=== PATIENT | male | born 1955 | race Caucasian/White ===

== ENCOUNTER 2021-05-23 09:32 | Outpatient (REF) | payer MEDICAID, SELFPAY ==
[2021-05-23 10:47] LABS: MANUAL DIFF FLAG NO
[2021-05-23 10:51] LABS: Basophils Percent Auto 0.6 % (0-2); Eosinophils Absolute Auto 0.1 X10*3/uL (0.0-0.4); Eosinophils Percent Auto 1.4 % (0-4); Hematocrit 43.8 % (42-52); Hemoglobin 14.4 g/dl (14.0-18.0); Imm Gran Abs Auto 0.17 X10*3/uL (0.00-0.03); Imm Gran Pct Auto 2.7 % (0.0-0.4); Lymphocytes Absolute Auto 1.8 X10*3/uL (1.2-4.9); Lymphocytes Percent Auto 28.5 % (20-40); Mean Corpuscular HGB Conc 32.9 g/dl (31.0-36.0); Mean Corpuscular Hemoglobin 28.5 pg (27.0-33.0); Mean Corpuscular Volume 86.7 fL (80-98); Mean Platelet Volume 8.4 fL (9.4-12.4); Monocytes Absolute Auto 0.5 X10*3/uL (0.1-1.2); Monocytes Percent Auto 7.3 % (2-11); Neutrophils Absolute Auto 3.7 X10*3/uL (2.0-8.3); Neutrophils Percent Auto 59.5 % (45-73); Platelet Count 244 X10*3/uL (160-400); Red Blood Count 5.05 X10*6/uL (4.60-5.80); Red Cell Distribution Width 12.9 % (11.0-16.0); White Blood Count 6.3 X10*3/uL (4.8-10.8)
[2021-05-23 11:20] LABS: Alanine Aminotransferase 20 U/L (0-40); Albumin Level 4.7 g/dL (3.5-5.0); Alkaline Phosphatase 92 U/L (39-117); Anion Gap 16 (12-20); Aspartate Amino Transferase 15 U/L (5-37); Bilirubin Total 0.8 mg/dL (0.0-1.0); Blood Urea Nitrogen 18 mg/dL (9-16); Calcium 9.6 mg/dL (8.4-10.2); Carbon Dioxide 25 mmol/L (22-29); Chloride 104 mmol/L (96-108); Estimated Glomerular Filt Rate 56; Glucose Random 93 mg/dL (60-115); Potassium 4.2 mmol/L (3.3-5.1); Sodium 141 mmol/L (135-145); Total Protein 7.4 g/dL (6.5-8.0)
== END 2021-05-23 09:33 | disposition home or self-care (01) ==
LOC: HO.LAB 09:32
PROVIDERS: PCP Internal Medicine; Visit Provider Internal Medicine
DX: D50.8 Other iron deficiency anemias (principal); E78.2 Mixed hyperlipidemia; I12.9 Hypertensive chronic kidney disease with stage 1 through stage 4 chronic kidney disease, or unspecified chronic kidney disease; N18.31 Chronic kidney disease, stage 3a
CPT/HCPCS: 36415; 80053; 85025

== ENCOUNTER 2021-08-03 09:03 | Outpatient (REF) | payer MEDICAID, SELFPAY ==
--- NOTE | 2021-08-03 09:07 | EMG_ITS ---
This is a 66-year-old man who has had right hand pain on lifting more than 1 pound since 1999. He wears a brace. There is no atrophy or fasciculation. No weakness. PHYSICAL EXAMINATION: He has no Tinel's or Phalen sign. IMPRESSION: Rule out carpal tunnel syndrome. Nerve conduction EMG study: Normal electrodiagnostic study of the right upper extremity with no evidence of carpal tunnel syndrome or nerve entrapment. Normal EMG of the right C5-T1 innervated muscles. MD GEMA Lee/SONY / [id number]
== END 2021-08-03 09:04 | disposition home or self-care (01) ==
LOC: HO.NEURO 09:03
PROVIDERS: PCP Internal Medicine; Visit Provider Internal Medicine
DX: M79.642 Pain in left hand (principal); M79.641 Pain in right hand
CPT/HCPCS: 95885; 95910

== ENCOUNTER 2021-09-05 12:47 | Outpatient (REF) | payer MEDICAID, SELFPAY ==
[2021-09-05 13:01] LABS: MANUAL DIFF FLAG NO
[2021-09-05 13:29] LABS: Basophils Percent Auto 0.4 % (0-2); Eosinophils Absolute Auto 0.3 X10*3/uL (0.0-0.4); Eosinophils Percent Auto 3.6 % (0-4); Hematocrit 26.9 % (42.0-52.0); Hemoglobin 8.4 g/dl (14.0-18.0); Imm Gran Abs Auto 0.18 X10*3/uL (0.00-0.03); Imm Gran Pct Auto 2.3 % (0.0-0.4); Lymphocytes Absolute Auto 1.8 X10*3/uL (1.2-4.9); Lymphocytes Percent Auto 22.4 % (20-40); Mean Corpuscular HGB Conc 31.2 g/dl (31.0-36.0); Mean Corpuscular Hemoglobin 27.4 pg (27.0-33.0); Mean Corpuscular Volume 87.6 fL (80.0-98.0); Mean Platelet Volume 8.5 fL (9.4-12.4); Monocytes Absolute Auto 0.6 X10*3/uL (0.1-1.2); Neutrophils Percent Auto 64.3 % (45-73); Platelet Count 317 X10*3/uL (160-400); Red Blood Count 3.07 X10*6/uL (4.60-5.80); White Blood Count 7.8 X10*3/uL (4.8-10.8)
[2021-09-05 13:55] LABS: Alanine Aminotransferase 13 U/L (0-40); Albumin Level 4.1 g/dL (3.5-5.0); Alkaline Phosphatase 86 U/L (39-117); Anion Gap 12 (12-20); Aspartate Amino Transferase 16 U/L (5-37); Bilirubin Total 0.5 mg/dL (0.0-1.0); Blood Urea Nitrogen 17 mg/dL (9-16); Carbon Dioxide 25 mmol/L (22-29); Estimated Glomerular Filt Rate > 60; Glucose Random 91 mg/dL (60-115); Potassium 4.2 mmol/L (3.3-5.1); Total Protein 6.6 g/dL (6.5-8.0)
[2021-09-05 14:03] LABS: Chloride 108 mmol/L (96-108); Sodium 141 mmol/L (135-145)
== END 2021-09-05 12:48 | disposition home or self-care (01) ==
LOC: HO.LAB 12:47
PROVIDERS: PCP Internal Medicine; Visit Provider Internal Medicine
DX: D50.8 Other iron deficiency anemias (principal); E78.2 Mixed hyperlipidemia; I12.9 Hypertensive chronic kidney disease with stage 1 through stage 4 chronic kidney disease, or unspecified chronic kidney disease; N18.9 Chronic kidney disease, unspecified; D63.1 Anemia in chronic kidney disease; R53.1 Weakness
CPT/HCPCS: 36415; 80053; 85025

== ENCOUNTER 2021-11-15 11:37 | Outpatient (REF) | payer MEDICAID, SELFPAY ==
[2021-11-15 14:45] LABS: Ferritin 2 ng/mL (20-250)
[2021-11-15 15:19] LABS: Vitamin B12 278 pg/mL (200-900)
[2021-11-17 13:11] LABS: Prot Elec - Albumin 3.7 g/dL (3.8-4.8); Prot Elec - Alpha1 0.5 g/dL (0.2-0.3); Prot Elec - Alpha2 0.9 g/dL (0.5-0.9); Prot Elec - Beta 1 0.6 g/dL (0.4-0.6); Prot Elec - Beta 2 0.3 g/dL (0.2-0.5); Prot Elec - Gamma 0.7 g/dL (0.8-1.7); Prot Elec - Total Protein 6.7 g/dL (6.1-8.1)
== END 2021-11-15 11:38 | disposition home or self-care (01) ==
LOC: HO.10HDL 11:37
PROVIDERS: Visit Provider Internal Medicine
DX: D64.9 Anemia, unspecified (principal); R06.02 Shortness of breath; R53.83 Other fatigue
CPT/HCPCS: 36415; 82607; 82728; 84165

== ENCOUNTER 2022-01-24 10:23 | Outpatient (REF) | payer MEDICAID, SELFPAY ==
[2022-01-24 10:38] LABS: MANUAL DIFF FLAG NO
[2022-01-24 12:03] LABS: Basophils Absolute Auto 0.1 X10*3/uL (0.0-0.2); Basophils Percent Auto 0.7 % (0-2); Eosinophils Absolute Auto 0.2 X10*3/uL (0.0-0.4); Eosinophils Percent Auto 2.1 % (0-4); Hematocrit 38.1 % (42.0-52.0); Hemoglobin 11.1 g/dl (14.0-18.0); Imm Gran Abs Auto 0.07 X10*3/uL (0.00-0.03); Lymphocytes Absolute Auto 1.3 X10*3/uL (1.2-4.9); Lymphocytes Percent Auto 18.4 % (20-40); Mean Corpuscular HGB Conc 29.1 g/dl (31.0-36.0); Mean Corpuscular Hemoglobin 23.8 pg (27.0-33.0); Mean Corpuscular Volume 81.6 fL (80.0-98.0); Mean Platelet Volume 8.6 fL (9.4-12.4); Monocytes Absolute Auto 0.6 X10*3/uL (0.1-1.2); Monocytes Percent Auto 8.4 % (2-11); Neutrophils Absolute Auto 4.9 x10*3/uL (2.0-8.3); Neutrophils Percent Auto 69.4 % (45-73); Platelet Count 339 X10*3/uL (160-400); Red Blood Count 4.67 X10*6/uL (4.60-5.80); Red Cell Distribution Width 16.9 % (11.0-16.0)
[2022-01-24 12:41] LABS: Alanine Aminotransferase 16 U/L (0-40); Albumin Level 4.3 g/dL (3.5-5.0); Alkaline Phosphatase 98 U/L (39-117); Anion Gap 13 (12-20); Aspartate Amino Transferase 17 U/L (5-37); Bilirubin Total 0.3 mg/dL (0.0-1.0); Blood Urea Nitrogen 21 mg/dL (9-16); Calcium 9.7 mg/dL (8.4-10.2); Carbon Dioxide 27 mmol/L (22-29); Chloride 105 mmol/L (96-108); Cholesterol 156 mg/dL; Estimated Glomerular Filt Rate > 60; Glucose Random 89 mg/dL (60-115); HDL Cholesterol 50 mg/dL; LDL Cholesterol Calculated 89 mg/dl; Potassium 4.7 mmol/L (3.3-5.1); Sodium 140 mmol/L (135-145); Triglycerides 88 mg/dL
[2022-01-24 12:51] LABS: Thyroid Stimulating Hormone 2.61 uIU/mL (0.32-4.0)
== END 2022-01-24 10:24 | disposition home or self-care (01) ==
LOC: HO.LAB 10:23
PROVIDERS: PCP Internal Medicine; Visit Provider Internal Medicine
DX: E78.2 Mixed hyperlipidemia (principal); I10 Essential (primary) hypertension
CPT/HCPCS: 36415; 80053; 80061; 84443; 85025

== ENCOUNTER 2022-02-09 09:41 | Outpatient (REF) | payer MEDICAID, SELFPAY ==
--- NOTE | ~2022-02-09 | XR_ITS ---
EXAMINATION: 1. RADIOGRAPHS RIGHT SHOULDER 2. RADIOGRAPHS RIGHT ELBOW CLINICAL INFORMATION: Chronic pain COMPARISON: None TECHNIQUE: 4 views of the right shoulder and 3 views of the right elbow were obtained. FINDINGS: Right shoulder: Visualized portion of the proximal right femur demonstrate no fracture. Right femoral head demonstrates good articulation with the glenoid fossa. There are mild to moderate hypertrophic changes of the right acromioclavicular joint. Visualized right-sided ribs and lung parenchyma are unremarkable. Degenerative changes of the visualized thoracic spine. Right elbow: No fracture or dislocation. No joint effusion. Small enthesophytes off the olecranon process and medial and lateral humeral epicondyles. No focal soft tissue swelling of the right elbow. XR/XR elbow RT 2V IMPRESSION: -Mild degenerative changes of the right shoulder without fracture or dislocation. -Mild degenerative changes of the right elbow without fracture or dislocation.
--- NOTE | ~2022-02-09 | XR_ITS ---
EXAMINATION: 1. RADIOGRAPHS RIGHT SHOULDER 2. RADIOGRAPHS RIGHT ELBOW CLINICAL INFORMATION: Chronic pain COMPARISON: None TECHNIQUE: 4 views of the right shoulder and 3 views of the right elbow were obtained. FINDINGS: Right shoulder: Visualized portion of the proximal right femur demonstrate no fracture. Right femoral head demonstrates good articulation with the glenoid fossa. There are mild to moderate hypertrophic changes of the right acromioclavicular joint. Visualized right-sided ribs and lung parenchyma are unremarkable. Degenerative changes of the visualized thoracic spine. Right elbow: No fracture or dislocation. No joint effusion. Small enthesophytes off the olecranon process and medial and lateral humeral epicondyles. No focal soft tissue swelling of the right elbow. XR/XR shoulder RT min 2V IMPRESSION: -Mild degenerative changes of the right shoulder without fracture or dislocation. -Mild degenerative changes of the right elbow without fracture or dislocation.
== END 2022-02-09 09:42 | disposition home or self-care (01) ==
LOC: HO.XRAY 09:41
PROVIDERS: PCP Internal Medicine; Visit Provider Internal Medicine
DX: M25.511 Pain in right shoulder (principal); M25.521 Pain in right elbow
CPT/HCPCS: 73030; 73070

== ENCOUNTER 2022-02-22 09:13 | Outpatient (REF) | payer MEDICAID, SELFPAY ==
[2022-02-22 11:26] LABS: Alanine Aminotransferase 19 U/L (0-40); Albumin Level 4.3 g/dL (3.5-5.0); Alkaline Phosphatase 119 U/L (39-117); Anion Gap 13 (12-20); Aspartate Amino Transferase 16 U/L (5-37); Bilirubin Total 0.4 mg/dL (0.0-1.0); Blood Urea Nitrogen 16 mg/dL (9-16); Calcium 9.7 mg/dL (8.4-10.2); Carbon Dioxide 27 mmol/L (22-29); Chloride 103 mmol/L (96-108); Estimated Glomerular Filt Rate 60; Glucose Random 94 mg/dL (60-115); Potassium 4.4 mmol/L (3.3-5.1); Sodium 139 mmol/L (135-145); Total Protein 7.4 g/dL (6.5-8.0)
[2022-02-22 11:34] LABS: Prostate Specific Antigen Scr 1.73 ng/mL (<0.05-4.0)
== END 2022-02-22 09:14 | disposition home or self-care (01) ==
LOC: HO.10HDL 09:13
PROVIDERS: Visit Provider Internal Medicine
DX: Z12.5 Encounter for screening for malignant neoplasm of prostate (principal); D64.9 Anemia, unspecified
CPT/HCPCS: 36415; 80053; 84153

== ENCOUNTER 2022-03-14 10:25 | Day surgery (SDC) | payer MEDICAID, SELFPAY ==
[2022-03-08 10:43] VITALS: BMI 26.9
--- NOTE | 2022-03-13 08:42 | P.CONAN_ITS ---
Documented by User: Nelia Richey NP 03/13/22 08:43 HPI - Anesthesia Eval Consult details Narrative: 66yo M for Upper Endoscopy and Colonoscopy COUNTS INCLUDE 234 BEDS AT THE [facility] Past Medical History Medical History (Updated 03/08/22 @ 10:45 by Marlene Rice RN) COVID-19 vaccine series completed Elevated cholesterol History of COVID-19 HTN (hypertension) Iron deficiency anemia Macular degeneration Renal calculi Renal cyst Surgical History Surgical History (Updated 03/08/22 @ 10:33 by Marlene Rice RN) H/O colonoscopy Hx of right inguinal hernia repair Social History Social History Patient Tobacco Use Status: Former Tobacco user Quit Date: 1994 Tobacco use type: Cigarette Use of substances other than those prescribed or required for medical reasons: No Have you been hit, kicked, punched, or otherwise hurt by someone within the past year? If so, by whom?: No Are you DNR?: No Advance Directives: No Advance Directives Information Provided: Yes (brochure mailed) Advance Directives on File: No Recently lost weight without trying: No Eating poorly because of decreased appetite: No Nutrition Risks: No Nutritional Risk Poor oral hygiene: No Meds Allergies Allergy/AdvReac Type Severity Reaction Status Date / Time No Known Allergies Allergy Verified 03/08/22 10:33 Home Medications Medication Instructions Recorded Confirmed Last Taken Type amlodipine 5 mg tablet 1 tab PO DAILY 03/08/22 03/08/22 Unknown History atorvastatin 10 mg tablet 1 tab PO DAILY 03/08/22 03/08/22 Unknown History ferrous sulfate 325 mg (65 mg 1 tab PO DAILY 03/08/22 03/08/22 Unknown History iron) tablet (FeroSul) vitamin A-vitamin C-vit E-min 1 tab PO DAILY 03/08/22 03/08/22 Unknown History tablet Exam Exam Date and Time: March 13, 2022 0842 Height,Weight and Vital Signs: Height 5 ft 9 in Weight 82.554 kg Pertinent Lab Results Pertinent Lab Results: Laboratory Tests 01/24/22 02/22/22 10:36 09:29 WBC 7.0 Hgb 11.1 L D Hct 38.1 L D Plt Count 339 Sodium 139 Potassium 4.4 Chloride 103 Carbon Dioxide 27 BUN 16 Creatinine 1.22 Assessment and Plan Assessment Anesthesia Assessment: Chart Reviewed Documented by User: Betty Guzman MD 03/14/22 12:17 COUNTS INCLUDE 234 BEDS AT THE [facility] Past Medical History Medical History (Updated 03/08/22 @ 10:45 by Marlene Rice, RN) COVID-19 vaccine series completed Elevated cholesterol History of COVID-19 HTN (hypertension) Iron deficiency anemia Macular degeneration Renal calculi Renal cyst Family History Family history of problems with anesthesia: No Surgical History Surgical History (Updated 03/08/22 @ 10:33 by Marlene Rice RN) H/O colonoscopy Hx of right inguinal hernia repair History of Problems with Anesthesia: No Social History Social History Patient Tobacco Use Status: Former Tobacco user Quit Date: 1994 Tobacco use type: Cigarette Use of substances other than those prescribed or required for medical reasons: No Have you been hit, kicked, punched, or otherwise hurt by someone within the past year? If so, by whom?: No Are you DNR?: No Advance Directives: No Advance Directives Information Provided: Yes (brochure mailed) Advance Directives on File: No Recently lost weight without trying: No Eating poorly because of decreased appetite: No Nutrition Risks: No Nutritional Risk Poor oral hygiene: No Meds Allergies Allergy/AdvReac Type Severity Reaction Status Date / Time No Known Allergies Allergy Verified 03/08/22 10:33 Home Medications Medication Instructions Recorded Confirmed Last Taken Type amlodipine 5 mg tablet 1 tab PO DAILY 03/08/22 03/08/22 Unknown History atorvastatin 10 mg tablet 1 tab PO DAILY 03/08/22 03/08/22 Unknown History ferrous sulfate 325 mg (65 mg 1 tab PO DAILY 03/08/22 03/08/22 Unknown History iron) tablet (FeroSul) vitamin A-vitamin C-vit E-min 1 tab PO DAILY 03/08/22 03/08/22 Unknown History tablet Exam Height,Weight and Vital Signs: Height 5 ft 9 in Weight 82.554 kg Vital Signs Temp Pulse Resp BP Pulse Ox O2 Del Method 03/14/22 11:42 98.8 F 73 16 128/74 95 Room Air Airway Mallampati Class: II TM Dist: >3cm Neck ROM: Full Loose/Missing/Broken Teeth: No Heart: RRR Lungs: Diminished but clear Assessment and Plan Assessment Anesthesia Assessment: Anesthesia Plan Discussed Final Anesthetic Review Family History of Problems with Anesthesia: No History of Problems with Anesthesia: No NPO: Yes ASA Class: II Final Preanesthetic Review: No Changes in Pt Med Stat, Meds/Allgs Chart Reviewed, Consent Obtained/Reviewed and Anes Risks/Benef Reviewed Patient Risk: Low Procedure Risk: Low Assessment/Block/Sedation in SS: Assess/Block/Sedation-SS Anesthetic Plan Anesthetic Plan: MAC: Disposition: Standard PACU
[2022-03-14 11:42] VITALS: BP 128/74; PULSE 73; RESP 16; TEMP 37.1; O2SAT 95
[2022-03-14] MEDS: Lactated Ringers 1,000 ML 100 ML IVCONT (12:16)
--- NOTE | 2022-03-14 12:21 | MHC.SHP ---
Pre-Procedural Eval Section A Date of Service: 03/14/22 The patient is an INPATIENT: No Changes since office visit: No Cold of Flu in the past 2 weeks, No New Medical Problems, No Changes in Medication and No Patient answered all questions The History & Physical has been completed within 30 days and I have reviewed it.: Yes Section B Chief Complaint: anemia Allergies: Allergies Allergy/AdvReac Type Severity Reaction Status Date / Time No Known Allergies Allergy Verified 03/08/22 10:33 Plan I have reviewed the history and physical and performed a pertinent physical examination on my patient. No changes have occurred unless specified.
[2022-03-14 13:28] VITALS: BP 86/50; PULSE 73; RESP 16; TEMP 36.1; O2SAT 96
--- NOTE | 2022-03-14 13:40 | PM.OP ---
Brief Operative Note Date of Service: 03/14/22 Pre-op diagnosis: iron def anemia Post-op diagnosis: same Procedure: egd colon Surgeon: Merlin Chaudhry Anesthesia: MAC Was an Construction And Maintenance Inspector used for this Procedure?: No Estimated blood loss (mL): 5 Pathology: other Condition: stable Disposition: PACU
[2022-03-14 13:43] VITALS: BP 91/50; PULSE 64; RESP 16; O2SAT 98
[2022-03-14 13:58] VITALS: BP 109/67; PULSE 60; RESP 16; TEMP 36.1; O2SAT 99
--- NOTE | 2022-03-14 14:12 | OP_ITS ---
SURGEON: Merlin Chaudhry MD INDICATIONS: Iron deficiency anemia. PREOPERATIVE DIAGNOSIS: POSTOPERATIVE DIAGNOSIS: PROCEDURE PERFORMED: 1. Upper endoscopy with biopsy. 2. Colonoscopy to the terminal ileum with biopsy. ESTIMATED BLOOD LOSS: COMPLICATIONS: ANESTHESIA: ASSISTANTS: SPECIMENS: MEDICATIONS: Monitored anesthesia care. DESCRIPTION OF PROCEDURE: History and physical were performed. The risks and benefits of the procedure were explained to the patient. Informed consent was obtained. The patient was placed in the left lateral decubitus position. The Olympus video gastroscope was introduced into the esophagus, stomach, and duodenum. Examination was performed. The scope was removed. He was repositioned for colonoscopy. A digital rectal exam was performed and was found to be normal. The Olympus pediatric video colonoscope was introduced into the rectum and advanced to the cecum without difficulty. The cecum was identified by transillumination, palpation, and identification of the ileocecal valve. Examination was performed and the scope was removed. He tolerated both procedures well and was returned to recovery area in stable condition. FINDINGS: UPPER ENDOSCOPY: Esophagus: There were changes consistent with Gutierrez esophagus beginning at about 25 cm extending to the EG junction, which was at about 34 to 35 cm. There was a large ulcer involving approximately 50% of the lumen measuring approximately 3 x 4 cm right at the EG junction, just above it with some heaped up margins. Biopsies were obtained from the ulcer, which was not bleeding. No therapy was performed. Biopsies were then obtained in all 4 quadrants above the ulcer extending to the upper limit of the Gutierrez's tissue. Aside from the ulcer, there were no other ulcers or raised lesions. Stomach: The stomach showed no evidence of masses or ulcers. Antral biopsies were obtained to evaluate for H pylori. Duodenum: The bulb and second portion were normal. Biopsies were obtained from the second portion. COLONOSCOPY: The terminal ileum was examined and appeared normal. There was a moderate amount of stool coating the mucosa in the right colon and cecum, limiting the examination for detection of small polyps. There was a small less than 5 mm polyp in the right colon, which was removed with biopsy forceps. The remainder of the colon showed no lesions. There was diverticulosis present to moderate degree in the sigmoid and some scattered diverticula throughout the remainder of the colon. Retroflexed examination was normal. IMPRESSION: 1. Gutierrez esophagus. 2. Hiatal hernia. 3. Esophageal ulcer. 4. Colon polyp. RECOMMENDATION: Follow up the biopsy results and begin proton pump inhibitor. MD ADRIAN Nobles/SONY / [id number]
== END 2022-03-14 15:20 | disposition home or self-care (01) ==
PROVIDERS: PCP Internal Medicine; Visit Provider Internal Medicine Gastroenterology
PROC: (CPT 45380; principal; 2022-03-14 12:40)
DX: D50.9 Iron deficiency anemia, unspecified (principal); D12.2 Benign neoplasm of ascending colon; R53.83 Other fatigue; K29.50 Unspecified chronic gastritis without bleeding; K29.80 Duodenitis without bleeding; B96.81 Helicobacter pylori [H. pylori] as the cause of diseases classified elsewhere; K22.70 Barrett's esophagus without dysplasia; K44.9 Diaphragmatic hernia without obstruction or gangrene; I10 Essential (primary) hypertension; E78.00 Pure hypercholesterolemia, unspecified; Z79.899 Other long term (current) drug therapy; Z86.16 Personal history of COVID-19
CPT/HCPCS: 45380; 43239; 88305; 88342

== ENCOUNTER 2022-05-02 08:22 | Outpatient (REF) | payer MEDICARE, MEDICAID, SELFPAY ==
[2022-05-02 09:28] LABS: Alanine Aminotransferase 12 U/L (0-40); Albumin Level 4.5 g/dL (3.5-5.0); Alkaline Phosphatase 96 U/L (39-117); Anion Gap 15 (12-20); Aspartate Amino Transferase 14 U/L (5-37); Bilirubin Total 0.5 mg/dL (0.0-1.0); Blood Urea Nitrogen 17 mg/dL (9-16); Calcium 9.3 mg/dL (8.4-10.2); Carbon Dioxide 23 mmol/L (22-29); Chloride 107 mmol/L (96-108); Estimated Glomerular Filt Rate 59; Glucose Random 98 mg/dL (60-115); Sodium 141 mmol/L (135-145); Total Protein 7.2 g/dL (6.5-8.0)
== END 2022-05-02 08:23 | disposition home or self-care (01) ==
LOC: HO.LAB 08:22
PROVIDERS: PCP Internal Medicine; Visit Provider Internal Medicine
DX: Z00.00 Encounter for general adult medical examination without abnormal findings (principal); Z12.5 Encounter for screening for malignant neoplasm of prostate; M79.601 Pain in right arm; I10 Essential (primary) hypertension; E78.00 Pure hypercholesterolemia, unspecified; D50.8 Other iron deficiency anemias
CPT/HCPCS: 36415; 80053; 84153

== ENCOUNTER → 2022-06-21 10:22 | Outpatient (BNVA) | payer OTHER, MEDICAID, SELFPAY | PROVIDERS: PCP Internal Medicine; Visit Provider Physician Assistant | DX: M77.11 Lateral epicondylitis, right elbow (principal) | CPT/HCPCS: 20551; 99202; J1100 ==

== ENCOUNTER 2022-07-06 10:00 | Outpatient (RCR) | payer MEDICARE, OTHER, MEDICAID, SELFPAY | END 2022-07-18 08:14 | disposition home or self-care (01) | LOC: HO.PT 10:00 | PROVIDERS: PCP Internal Medicine; Visit Provider Internal Medicine | DX: M25.511 Pain in right shoulder (principal) | CPT/HCPCS: 97035; 97110; 97140; 97162; 97530 ==

== ENCOUNTER 2022-07-14 06:50 | Day surgery (SDC) | payer OTHER, MEDICAID, SELFPAY ==
[2022-07-11 10:26] VITALS: BMI 26.9
--- NOTE | 2022-07-13 10:54 | P.CONAN_ITS ---
Documented by User: Nelia Richey NP 07/13/22 10:57 HPI - Anesthesia Eval Consult details Narrative: 67yo M for Upper Endoscopy s/p EGD and [place] 03/[address] [facility] Active Problems Active Problems: All Active Problems (Updated 06/21/22 @ 11:39 by Sherrie Haas PA-C) Epicondylitis elbow, medial (Acute) Lateral epicondylitis, right elbow (Acute) Past Medical History Medical History COVID-19 vaccine series completed Elevated cholesterol History of COVID-19 HTN (hypertension) Iron deficiency anemia Macular degeneration Renal calculi Renal cyst Family History Family history of problems with anesthesia: No Surgical History Surgical History H/O colonoscopy History of esophagogastroduodenoscopy (EGD) Hx of right inguinal hernia repair History of Problems with Anesthesia: No Social History Social History (Updated 06/21/22 @ 11:06 by Alexandra Roldan Sohan) Patient Tobacco Use Status: Former Tobacco user Quit Date: 1994 Tobacco use type: Cigarette Are you DNR?: No Advance Directives: No Advance Directives Information Provided: Yes Nutrition Risks: No Nutritional Risk Current occupational status: retired Current occupation: rt hand Meds Allergies Allergy/AdvReac Type Severity Reaction Status Date / Time No Known Allergies Allergy Verified 07/14/22 08:15 Home Medications Medication Instructions Recorded Confirmed Last Taken Type amlodipine 5 mg tablet 1 tab PO DAILY 03/08/22 07/14/22 07/13/22 History atorvastatin 10 mg tablet 1 tab PO DAILY 03/08/22 07/14/22 07/13/22 History ferrous sulfate 325 mg (65 mg 1 tab PO DAILY 03/08/22 07/14/22 07/13/22 History iron) tablet (FeroSul) vitamin A-vitamin C-vit E-min 1 tab PO DAILY 03/08/22 07/14/22 07/13/22 History tablet omeprazole 40 mg capsule,delayed 40 mg PO DAILY 06/21/22 07/14/22 07/13/22 History release Exam Exam Date and Time: July 13, 2022 1054 Height,Weight and Vital Signs: Height 5 ft 9 in Weight 82.554 kg Pertinent Lab Results Pertinent Lab Results: Laboratory Tests 01/24/22 05/02/22 10:36 08:39 WBC 7.0 Hgb 11.1 L D Hct 38.1 L D Plt Count 339 Sodium 141 Potassium 4.0 Chloride 107 Carbon Dioxide 23 BUN 17 H Creatinine 1.23 Assessment and Plan Assessment Anesthesia Assessment: Chart Reviewed Final Anesthetic Review Family History of Problems with Anesthesia: No History of Problems with Anesthesia: No Documented by User: Jer Greene MD 07/14/22 15:51 [facility] Past Medical History Medical History COVID-19 vaccine series completed Elevated cholesterol History of COVID-19 HTN (hypertension) Iron deficiency anemia Macular degeneration Renal calculi Renal cyst Functional capacity: independent ambulation Surgical History Surgical History H/O colonoscopy History of esophagogastroduodenoscopy (EGD) Hx of right inguinal hernia repair Social History Social History (Updated 06/21/22 @ 11:06 by Alexandra Roldan Sohan) Patient Tobacco Use Status: Former Tobacco user Quit Date: 1994 Tobacco use type: Cigarette Are you DNR?: No Advance Directives: No Advance Directives Information Provided: Yes Nutrition Risks: No Nutritional Risk Current occupational status: retired Current occupation: rt hand Meds Allergies Allergy/AdvReac Type Severity Reaction Status Date / Time No Known Allergies Allergy Verified 07/14/22 08:15 Home Medications Medication Instructions Recorded Confirmed Last Taken Type amlodipine 5 mg tablet 1 tab PO DAILY 03/08/22 07/14/22 07/13/22 History atorvastatin 10 mg tablet 1 tab PO DAILY 03/08/22 07/14/22 07/13/22 History ferrous sulfate 325 mg (65 mg 1 tab PO DAILY 03/08/22 07/14/22 07/13/22 History iron) tablet (FeroSul) vitamin A-vitamin C-vit E-min 1 tab PO DAILY 03/08/22 07/14/22 07/13/22 History tablet omeprazole 40 mg capsule,delayed 40 mg PO DAILY 06/21/22 07/14/22 07/13/22 History release Exam Airway Mallampati Class: IV TM Dist: >3cm Neck ROM: Full Loose/Missing/Broken Teeth: Yes (Chipped front teeth , fillings , poor dentition) Heart: S1,S2 Lungs: b/l breath sounds Assessment and Plan Assessment Anesthesia Assessment: Anesthesia Plan Discussed Final Anesthetic Review NPO: Yes ASA Class: II Final Preanesthetic Review: Meds/Allgs Chart Reviewed, Consent Obtained/Reviewed and Anes Risks/Benef Reviewed Patient Risk: Intermediate Procedure Risk: Intermediate Anesthetic Plan Anesthetic Plan: MAC: Disposition: Standard PACU
[2022-07-14 07:35] VITALS: BP 138/76; PULSE 66; RESP 18; TEMP 36.6; O2SAT 99
[2022-07-14] MEDS: Lactated Ringers 1,000 ML 100 ML IVCONT (07:37)
--- NOTE | 2022-07-14 07:40 | MHC.SHP ---
Pre-Procedural Eval Section A Date of Service: 07/14/22 Section B Chief Complaint: ulcer esophagus Details of Present Illness: see h&p and addendum, no changes Relevant Family History (Specify if Yes): No Relevant Social History: None Present Medications: see Short Stay Collaborative assessment Medical History: No relevant PMH History of Previous Operations: No relevant previous surgery Allergies: Allergies Allergy/AdvReac Type Severity Reaction Status Date / Time No Known Allergies Allergy Verified 06/21/22 11:04 Review of Systems Sugical H&P ROS: Negative: Constitution, Cardiovascular, Respiratory, Neurological, Psychiatric, Hem-Onc, Allergic/Immunologic, Gastrointestinal, Genitourinary, Musculoskeletal, Integumentary, Endocrine and Eyes/Ears/Nose/Throat Exam Surgical H&P Exam: Normal: HEENT, Normal: Heart, Normal: Lungs, Normal: Extremities, Normal: Abdomen, Normal: Skin and Normal: Neurological Plan Diagnosis/Plan: Unchanged I have reviewed the history and physical and performed a pertinent physical examination on my patient. No changes have occurred unless specified.
--- NOTE | 2022-07-14 09:12 | PM.OP ---
Brief Operative Note Date of Service: 07/14/22 Pre-op diagnosis: barretts with ulcer and h pylori infection Post-op diagnosis: same Procedure: egd Surgeon: Merlin Chaudhry Anesthesia: MAC Was an Junior Web Developer used for this Procedure?: No Estimated blood loss (mL): 2 Pathology: other Condition: stable Disposition: PACU
[2022-07-14 09:19] VITALS: BP 113/66; PULSE 77; RESP 17; TEMP 36.7; O2SAT 97
[2022-07-14 09:34] VITALS: BP 121/70; PULSE 69; RESP 18; O2SAT 94
[2022-07-14 09:49] VITALS: BP 126/73; PULSE 73; RESP 18; O2SAT 96
--- NOTE | 2022-07-15 00:29 | OP_ITS ---
SURGEON: Merlin Chaudhry MD INDICATIONS: Gutierrez esophagus with H pylori infection and large esophageal ulcer. PREOPERATIVE DIAGNOSIS: POSTOPERATIVE DIAGNOSIS: PROCEDURE PERFORMED: Upper endoscopy with biopsy on 07/14/22. ESTIMATED BLOOD LOSS: COMPLICATIONS: ANESTHESIA: Monitored anesthesia care. ASSISTANTS: SPECIMENS: DESCRIPTION OF PROCEDURE: History and physical performed. The risks and benefits of the procedure were explained to the patient. Informed consent was obtained. The patient was placed in the left lateral decubitus position. The Olympus video gastroscope was introduced into the esophagus, stomach, and duodenum. Examination was performed. The scope was removed. He tolerated the procedure well and was taken to the recovery area in stable condition. FINDINGS: Esophagus: The esophagus was tortuous. There was a large area of Gutierrez esophagus, which had been previously identified and biopsied at his last upper endoscopy. The large esophageal ulcer, which had been previously identified at the EG junction was completely healed with no residual ulceration. Biopsies were obtained in the distal esophagus at 34 and 32 cm. There was a small hiatal hernia. Stomach: The stomach showed no evidence of masses, ulcers, or polyps. Antral biopsies were obtained to follow up on his H pylori infection, which had been treated. Duodenum: The bulb and second portion were normal. IMPRESSION: 1. Gutierrez esophagus. 2. Esophageal ulcer, healed. 3. H pylori infection. RECOMMENDATION: Follow up the biopsy results. MD ADRIAN Nobles/SONY / [id number] MTDD
== END 2022-07-14 10:21 | disposition home or self-care (01) ==
PROVIDERS: PCP Internal Medicine; Visit Provider Internal Medicine Gastroenterology
PROC: 0DJ08ZZ Inspection of Upper Intestinal Tract, Via Natural or Artificial Opening Endoscopic (ICD-10-PCS; CPT 43235; principal; 2022-07-14 08:00)
DX: K22.70 Barrett's esophagus without dysplasia (principal); Z87.11 Personal history of peptic ulcer disease; A04.8 Other specified bacterial intestinal infections; K22.89 Other specified disease of esophagus; K44.9 Diaphragmatic hernia without obstruction or gangrene; E78.00 Pure hypercholesterolemia, unspecified; I10 Essential (primary) hypertension; D50.9 Iron deficiency anemia, unspecified; Z79.899 Other long term (current) drug therapy; Z87.891 Personal history of nicotine dependence; Z86.16 Personal history of COVID-19
CPT/HCPCS: 43239; 88305; 88342; J3010

== ENCOUNTER 2022-08-01 13:00 | Outpatient (RCR) | payer OTHER, MEDICAID, SELFPAY ==
--- NOTE | 2022-07-17 14:03 | MHC.OT.EP ---
[address] [phone] Occupational Therapy Plan of Care Date of Evaluation: 07/17/22 Diagnosis: Right lateral epicondylitis Assessment: 67 yo male presents w/ right hand weakness and impaired functional since injury to elbow almost thirty years ago. He reports that he fell down and landed onto right elbow and was never seen by MD or therapist at that time. He has recently been seen at [facility] and received cortisone injection to right elbow and appears to have good results. Now referred to therapy w/ c/o occasional numbness in dorsal hand and low ep specialist strength for everyday activities. MRI of shoulder and elbow normal and EMG (-) for nerve involvement. On assessment, he does have decreased elbow range w/ 30-145 degrees, but still within functional range and reports he has been able to bowl and play darts. He reports difficulty grasping pen/pencil, but digit range is WFL and coordination assessment normal. He offers no specific c/o pain today and sensory assessment shows normal limits in both hands and no indication of muscle atrophy in any distribution or musculature. Gross grasp initially 1lb, but increases to 20lb w/ rapid alternating movement assessment. He is able to grasp blue foam and beige putty w/ ease when given home program. We will continue OT for hand strengthening w/ goal of increased gross grasp and pinch for improved daily activities. 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 Thank you once again for your referral.
--- NOTE | 2022-08-02 13:21 | MHC.OT.DC ---
[address] [phone] F: [phone] Occupational Therapy Discharge Note Provider: Sherrie Haas Diagnosis: Right lateral epicondylitis Date of Evaluation: 07/17/22 Date of Discharge: 08/01/22 Treatments to Date: 5 Discharge Status: Achieved Goals Improved Function Independent with HEP Discharge Summary: Fl[place] was referred to OT for right arm pain and weakness related to injury over 30 years ago. 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 QuickDASH has improved to 14 pts, indicating mild functional deficits. He has been able to participate in all strengthening tasks in OT sessions with no increase in pain and has good understanding of home exercise program. He cont's to report right shoulder discomfort at times, mostly related to heavy work, but he has done well and I anticipate he will cont with home program and encouragement to increase day to day activities. Electronically Signed By: Sarah Ravi OTR/L CHT Reviewed/agree with student documentation: N/A Therapist: Please Sign and return to therapist, thank you for your referral.
== END 2022-08-02 13:21 | disposition home or self-care (01) ==
LOC: HO.OT 13:00
PROVIDERS: Visit Provider Physician Assistant
DX: M77.11 Lateral epicondylitis, right elbow (principal)
CPT/HCPCS: 97110; 97165

== ENCOUNTER 2022-09-14 13:21 | Outpatient (REF) | payer OTHER, MEDICAID, SELFPAY ==
[2022-09-14 13:34] LABS: MANUAL DIFF FLAG NO
[2022-09-14 13:57] LABS: Basophils Absolute Auto 0.1 X10*3/uL (0.0-0.2); Basophils Percent Auto 0.8 % (0-2); Eosinophils Absolute Auto 0.1 X10*3/uL (0.0-0.4); Eosinophils Percent Auto 1.3 % (0-4); Hematocrit 44.7 % (42.0-52.0); Hemoglobin 14.2 g/dl (14.0-18.0); Imm Gran Abs Auto 0.19 X10*3/uL (0.00-0.03); Lymphocytes Absolute Auto 1.7 X10*3/uL (1.2-4.9); Mean Corpuscular HGB Conc 31.8 g/dl (31.0-36.0); Mean Corpuscular Hemoglobin 27.5 pg (27.0-33.0); Mean Corpuscular Volume 86.5 fL (80.0-98.0); Mean Platelet Volume 8.4 fL (9.4-12.4); Monocytes Absolute Auto 0.6 X10*3/uL (0.1-1.2); Monocytes Percent Auto 8.6 % (2-11); Neutrophils Absolute Auto 3.8 x10*3/uL (2.0-8.3); Neutrophils Percent Auto 59.3 % (45-73); Platelet Count 276 X10*3/uL (160-400); Red Blood Count 5.17 X10*6/uL (4.60-5.80); Red Cell Distribution Width 12.9 % (11.0-16.0); White Blood Count 6.4 X10*3/uL (4.8-10.8)
[2022-09-14 14:59] LABS: Alanine Aminotransferase 29 U/L (0-40); Albumin Level 4.7 g/dL (3.5-5.0); Alkaline Phosphatase 116 U/L (39-117); Anion Gap 15 (12-20); Aspartate Amino Transferase 20 U/L (5-37); Bilirubin Total 0.4 mg/dL (0.0-1.0); Blood Urea Nitrogen 15 mg/dL (9-16); Carbon Dioxide 27 mmol/L (22-29); Chloride 103 mmol/L (96-108); Estimated Glomerular Filt Rate > 60; Glucose Random 80 mg/dL (60-115); Potassium 4.5 mmol/L (3.3-5.1); Sodium 140 mmol/L (135-145); Total Protein 7.4 g/dL (6.5-8.0)
== END 2022-09-14 13:22 | disposition home or self-care (01) ==
LOC: HO.LAB 13:21
PROVIDERS: PCP Internal Medicine; Visit Provider Internal Medicine
DX: D50.8 Other iron deficiency anemias (principal); E78.00 Pure hypercholesterolemia, unspecified; I10 Essential (primary) hypertension
CPT/HCPCS: 36415; 80053; 85025

== ENCOUNTER 2023-02-05 08:52 | Outpatient (REF) | payer OTHER, MEDICAID, SELFPAY ==
[2023-02-05 10:33] LABS: MANUAL DIFF FLAG NO
[2023-02-05 10:37] LABS: Basophils Percent Auto 0.7 % (0-2); Eosinophils Absolute Auto 0.1 X10*3/uL (0.0-0.4); Eosinophils Percent Auto 0.9 % (0-4); Hematocrit 43.4 % (42.0-52.0); Imm Gran Abs Auto 0.14 X10*3/uL (0.00-0.03); Imm Gran Pct Auto 2.4 % (0.0-0.4); Lymphocytes Absolute Auto 1.3 X10*3/uL (1.2-4.9); Lymphocytes Percent Auto 22.1 % (20-40); Mean Corpuscular HGB Conc 32.3 g/dl (31.0-36.0); Mean Corpuscular Volume 86.8 fL (80.0-98.0); Mean Platelet Volume 8.7 fL (9.4-12.4); Monocytes Absolute Auto 0.5 X10*3/uL (0.1-1.2); Monocytes Percent Auto 8.3 % (2-11); Neutrophils Absolute Auto 3.9 x10*3/uL (2.0-8.3); Neutrophils Percent Auto 65.6 % (45-73); Platelet Count 237 X10*3/uL (160-400); Red Cell Distribution Width 13.2 % (11.0-16.0); White Blood Count 5.9 X10*3/uL (4.8-10.8)
[2023-02-05 11:13] LABS: Alanine Aminotransferase 24 U/L (0-40); Albumin Level 4.6 g/dL (3.5-5.0); Alkaline Phosphatase 92 U/L (39-117); Anion Gap 13 (12-20); Aspartate Amino Transferase 18 U/L (5-37); Bilirubin Total 0.9 mg/dL (0.0-1.0); Blood Urea Nitrogen 15 mg/dL (9-16); Calcium 9.6 mg/dL (8.4-10.2); Carbon Dioxide 26 mmol/L (22-29); Chloride 104 mmol/L (96-108); Cholesterol 160 mg/dL; Estimated Glomerular Filt Rate > 60; Glucose Fasting 98 mg/dL (60-99); HDL Cholesterol 48 mg/dL; LDL Cholesterol Calculated 81 mg/dl; Potassium 4.3 mmol/L (3.3-5.1); Sodium 139 mmol/L (135-145); Total Protein 7.3 g/dL (6.5-8.0); Triglycerides 159 mg/dL
[2023-02-05 11:19] LABS: Prostate Specific Antigen 2.07 ng/mL (<0.05-4.0)
== END 2023-02-05 08:53 | disposition home or self-care (01) ==
LOC: HO.10HDL 08:52
PROVIDERS: Visit Provider Internal Medicine
DX: Z12.5 Encounter for screening for malignant neoplasm of prostate (principal); D50.8 Other iron deficiency anemias; E78.00 Pure hypercholesterolemia, unspecified; I10 Essential (primary) hypertension
CPT/HCPCS: 36415; 80053; 80061; 84153; 85025

== ENCOUNTER → 2023-03-19 08:00 | Outpatient (BNVA) | payer OTHER, MEDICAID, SELFPAY | PROVIDERS: PCP Internal Medicine; Visit Provider Physician Assistant | DX: M77.11 Lateral epicondylitis, right elbow (principal) | CPT/HCPCS: 99212 ==

== ENCOUNTER 2024-01-28 14:26 | Outpatient (AMB) | payer OTHER, MEDICAID, SELFPAY ==
--- NOTE | 2024-01-28 14:29 | A.OFFVIS_ITS ---
Vital Signs 01/28/24 14:30 Height 5 ft 9 in Weight 181 lb BMI 26.7 BP 140/81 H Blood Pressure Location Lt brachial Position Sitting Pulse 97 Intake Visit Reasons: Rctal Pain r/o anal fissure Intake Note: This patient was referred by for an assessment for rectal pain r/o anal fissure. Patient c/o; reports no complaints. Filter Press Tender Head Required: No Accompanied by: Self / Same As Patient Allergies No Known Allergies Allergy (Verified 01/28/24 14:45) Medication List - Last Reconciled 01/28/24 by Alejo Miller MD amlodipine 1 tab PO DAILY atorvastatin 1 tab PO DAILY ferrous sulfate (FeroSul) 1 tab PO DAILY ibuprofen 800 mg PO Q8H PRN 30 days omeprazole 40 mg PO DAILY vitamin A-vitamin C-vit E-min 1 tab PO DAILY HPI HPI Rctal Pain r/o anal fissure: Details: 68-year-old male referred for anal pain. He says that this happened about 2 months ago. He says that at that time, he was extremely constipated. He says that since then, his anal pain has improved significantly He denies any bleeding. He says that the anal pain is not really associated with passage of stool. He does have a long history of chronic constipation. [facility] Medical History (Updated 01/28/24 @ 14:56 by Alejo Miller MD) Anal pain COVID-19 vaccine series completed Iron deficiency anemia Macular degeneration Renal cyst Renal calculi History of COVID-19 Elevated cholesterol HTN (hypertension) Surgical History History of esophagogastroduodenoscopy (EGD) Hx of right inguinal hernia repair H/O colonoscopy Social History Patient Tobacco Use Status: Former Tobacco user Quit Date: 1994 Tobacco use type: Cigarette Current occupational status: retired Current occupation: rt hand Review of Systems Const Denies chills and Denies fever(s) Card Denies chest pain, Denies dyspnea and Denies dyspnea on exertion Resp Denies cough, Denies dyspnea and Denies dyspnea on exertion GI Denies hematochezia, Denies change in bowel habits and Reports constipation Denies hematuria and Denies difficulty urinating Musc Denies back pain and Denies limited range of motion Neuro Denies focal weakness and Denies convulsions Psych Denies depression and Denies mood swings Physical Exam Vital Signs: Last Vital Signs Pulse 97 01/28/24 14:30 BP 140/81 H 01/28/24 14:30 BMI result Body Mass Index 26.7 Const General: comfortable and no acute distress Orientation/consciousness: patient oriented x3 Neck Neck: Yes no lymphadenopathy Resp Auscultation: clear to auscultation bilaterally Cardio Rhythm: regular rhythm GI Other: Rectal exam shows no anal fissure Palpation (GI): Soft to palpation, nontender and no guarding Neuro General: patient oriented x3 Office Procedures Anoscopy He was in mayur-knife position. The anoscope was gently inserted. A full examination of the anal canal was done. Had some small hemorrhoids. There was no fissure ulceration. There was no bleeding. There was no hypertonicity of the anal sphincter. He was able to tolerate the digital exam well. He he did not have any significant tenderness. [id number] Assessment & Plan Assessment & Plan (1) Anal pain: Code(s): K62.89 - Other specified diseases of anus and rectum Category: Medical Plan: Current exam does not reveal any anal fissure. Furthermore, I do not see any lesions on anoscopy. There has no hypertonicity of the sphincter. There was no bleeding He is pain previously was likely secondary to his constipation with passage of hard stools. He says that this has improved significantly I am going to send him a prescription for Colace as well as Metamucil to help with his chronic constipation. I did tell him that the is free to come back to the office to be re-evaluated down the line if he has continuing problems. Coding Level of Care Code New Pt Level 3 (47868) Diagnoses Anal pain K62.89 CPT Codes Details - CPT: 22880-[id number] ([id number])
[2024-01-28 14:30] VITALS: BP 140/81; PULSE 97; BMI 26.7
== END 2024-01-28 15:01 | disposition home or self-care (01) ==
PROVIDERS: PCP Internal Medicine; Visit Provider Surgery
DX: K62.89 Other specified diseases of anus and rectum (principal)
CPT/HCPCS: 46600; 99203; 99213

== ENCOUNTER → 2024-01-28 14:26 | Outpatient (BNVA) | payer OTHER, MEDICAID, SELFPAY | PROVIDERS: PCP Internal Medicine; Visit Provider Surgery | DX: K62.89 Other specified diseases of anus and rectum (principal) | CPT/HCPCS: 46600; 99202 ==

== ENCOUNTER 2024-02-04 08:21 | Outpatient (REF) | payer OTHER, SELFPAY ==
[2024-02-04 08:45] LABS: MANUAL DIFF FLAG NO
[2024-02-04 09:03] LABS: Basophils Percent Auto 0.5 % (0-2); Eosinophils Absolute Auto 0.1 X10*3/uL (0.0-0.4); Hematocrit 42.5 % (42.0-52.0); Hematocrit 42.8 % (42.0-52.0); Hemoglobin 13.8 g/dl (14.0-18.0); Hemoglobin 13.9 g/dl (14.0-18.0); Imm Gran Abs Auto 0.03 X10*3/uL (0.00-0.03); Imm Gran Pct Auto 0.7 % (0.0-0.4); Lymphocytes Percent Auto 25.6 % (20-40); Mean Corpuscular HGB Conc 32.5 g/dl (31.0-36.0); Mean Corpuscular Hemoglobin 28.8 pg (27.0-33.0); Mean Corpuscular Volume 88.7 fL (80.0-98.0); Mean Corpuscular Volume 88.8 fL (80.0-98.0); Mean Platelet Volume 8.2 fL (9.4-12.4); Monocytes Absolute Auto 0.3 X10*3/uL (0.1-1.2); Monocytes Percent Auto 7.5 % (2-11); Neutrophils Absolute Auto 2.6 x10*3/uL (2.0-8.3); Neutrophils Percent Auto 63.7 % (45-73); Platelet Count 228 X10*3/uL (160-400); Platelet Count 235 X10*3/uL (160-400); Red Blood Count 4.79 X10*6/uL (4.60-5.80); Red Blood Count 4.82 X10*6/uL (4.60-5.80)
[2024-02-04 09:53] LABS: Alanine Aminotransferase 12 U/L (0-40); Albumin Level 4.3 g/dL (3.5-5.0); Alkaline Phosphatase 81 U/L (39-117); Anion Gap 14 (12-20); Aspartate Amino Transferase 13 U/L (5-37); Bilirubin Total 0.4 mg/dL (0.0-1.0); Blood Urea Nitrogen 19 mg/dL (9-16); Calcium 9.7 mg/dL (8.4-10.2); Carbon Dioxide 25 mmol/L (22-29); Chloride 108 mmol/L (96-108); Cholesterol 178 mg/dL (<200); Estimated Glomerular Filt Rate > 60; Glucose Random 92 mg/dL (60-115); HDL Cholesterol 52 mg/dL (>40); LDL Cholesterol Calculated 110 mg/dL (<100); Potassium 4.4 mmol/L (3.3-5.1); Sodium 143 mmol/L (135-145); Total Protein 7.1 g/dL (6.5-8.0); Triglycerides 83 mg/dL (<150)
[2024-02-04 09:54] LABS: Iron 70 mcg/dL (45-160); Percent Iron Saturation 25 % (15-50); Total Iron Binding Capacity 284 mcg/dL (228-428); Unsaturated Iron Binding 214 ug/dL
[2024-02-04 10:12] LABS: Ferritin 109 ng/mL (20-250)
== END 2024-02-04 08:22 | disposition home or self-care (01) ==
LOC: HO.LAB 08:21
PROVIDERS: Absent Provider Internal Medicine Gastroenterology; PCP Internal Medicine; Visit Provider Internal Medicine
DX: D50.8 Other iron deficiency anemias (principal); E78.00 Pure hypercholesterolemia, unspecified; I10 Essential (primary) hypertension; K22.70 Barrett's esophagus without dysplasia
CPT/HCPCS: 36415; 80053; 80061; 82728; 83540; 85025; 85027

== ENCOUNTER 2024-04-02 13:53 | Emergency (ER) | payer MEDICARE, SELFPAY ==
--- NOTE | ~2024-04-02 | XR_ITS ---
EXAMINATION: XR CHEST CLINICAL INFORMATION: N/V/D COMPARISON: Chest x-ray October 05, 2020 TECHNIQUE: 2 views of the chest were obtained. FINDINGS: Lungs are clear. No pulmonary vascular congestion. There is no pleural effusion. The heart size is normal. The cardiac and mediastinal contours are normal. There are multilevel degenerative changes of dorsal spine. XR/XR chest 2V IMPRESSION: Unremarkable examination.
--- NOTE | 2024-04-02 14:22 | ED_ITS ---
HPI - General Adult General Chief complaint: Nausea/Vomiting/Diarrhea Stated complaint: DIZZY,NAUSEA,DIARRHEA PER EMS Time Seen by Provider: 04/02/24 14:01 History of Present Illness ED Provider: Dr. Castillo HPI narrative: 68 y/o M patient; PMH HTN, HLD, iron deficiency anemia; presents from home reporting 24 hours of nausea/vomiting/diarrhea without abdominal pain. The patient states symptoms started yesterday. He has had approx 3 episodes of loose, non-bloody diarrhea and two episodes of non-bloody vomiting. He has never had abdominal pain. Unclear if he ate something that caused his symptoms but his with whom he lives does not have similar symptoms. He otherwise denies: fever or chills, cough/congestion, SOB, chest pain. He denies smoking or alcohol use. Denies recreational drug use. Hx hernia repair previously. Related Data Home Medications ?Medication ?Instructions ?Recorded ?Confirmed amlodipine 5 mg tablet 1 tab PO DAILY 03/08/22 01/28/24 atorvastatin 10 mg tablet 1 tab PO DAILY 03/08/22 01/28/24 ferrous sulfate 325 mg (65 mg 1 tab PO DAILY 03/08/22 01/28/24 iron) tablet (FeroSul) vitamin A-vitamin C-vit E-min 1 tab PO DAILY 03/08/22 01/28/24 tablet omeprazole 40 mg capsule,delayed 40 mg PO DAILY 06/21/22 01/28/24 release Previous Rx's ?Medication ?Instructions ?Recorded ibuprofen 800 mg tablet 800 mg PO Q8H PRN pain 30 days #90 03/19/23 tabs docusate sodium 100 mg capsule 100 mg PO DAILY #60 caps 01/28/24 (Colace) psyllium seed (sugar) oral powder 1 tsp PO DAILY #1,254 grams 01/28/24 (Metamucil (sugar) oral powder) Allergies Allergy/AdvReac Type Severity Reaction Status Date / Time No Known Allergies Allergy Verified 04/02/24 14:29 Review of Systems 2 Review of Systems: Yes all other systems are reviewed and are negative Neurologic: Denies Sensory deficit (Neuro) PMFSH Past Medical History Attestation statement: The following information was validated with the patient. Source: old records reviewed Medical History Anal pain COVID-19 vaccine series completed Iron deficiency anemia Macular degeneration Renal cyst Renal calculi History of COVID-19 Elevated cholesterol HTN (hypertension) Surgical History History of esophagogastroduodenoscopy (EGD) Hx of right inguinal hernia repair H/O colonoscopy Social History Social History Patient Tobacco Use Status: Former Tobacco user Tobacco use type: Cigarette Advance Directives: No Advance Directives Information Provided: No Do you have a plan to hurt others: No Plan Current occupational status: retired Current occupation: rt hand Physical Exam ED Vital Signs: Vital Signs - 24 hr 04/02/24 14:27 04/02/24 15:13 Temperature 97.2 F Pulse Rate 96 76 Respiratory Rate 18 16 Blood Pressure 114/66 112/66 Pulse Oximetry 96 93 Oxygen Delivery Method Room Air Room Air BMI result Body Mass Index 27.6 Patient is afebrile and hemodynamically stable. Const General: cooperative and no acute distress Orientation/consciousness: patient oriented x3 HENMT Head: Yes normal to inspection and Yes atraumatic Eyes General: appearance normal, both eyes and all related structures Pupils: Equal, round and reactive pupils present EOM: EOMs intact bilaterally Neck Neck: Yes normal visual inspection, Yes full ROM, Yes supple and No tender Chest Chest palpation & inspection: normal inspection of the chest and normal palpation of entire chest wall Resp Effort & Inspection: normal respiratory effort, able to speak in complete sentences, no cough and no respiratory distress Auscultation: clear to auscultation bilaterally Cardio Rate: regular rate Rhythm: regular rhythm Peripheral pulses: Peripheral pulses 2+ throughout GI Inspection: Yes normal to inspection, No Abdominal wall edema and No distended Palpation (GI): Soft to palpation, not firm, nontender, no guarding and not rigid Auscultation: normal bowel sounds General: Yes no CVA tenderness Back/Spine/Pelvis Back: no CVA tenderness Neuro General: patient oriented x3 Cranial nerves: Yes Equal, round and reactive pupils present Motor exam (neuro): 5/5 motor strength present throughout Sensory Exam: No Sensory deficit (Neuro) Extrem General: Yes normal to inspection and Yes full ROM Course Course Course Narrative: Patient is afebrile and hemodynamically stable. Ordered EKG, CBC, ECOSYSTEM ECOLOGY PROFESSOR, lipase. EKG reassuring. Labs reviewed. Mild baseline anemia 13.0. Mild hypokalemia 3.2 - likely 2/2 to diarrheal illness. Baseline Cr. Remainder of labs unremarkable. Patient able to tolerate PO without difficulty. Abdomen remains soft and non-tender. No further episodes of nausea/vomiting/diarrhea in the emergency department. Plan: Discharge to home with PCP follow up Return precautions given Medical Decision Making Lab Data 04/02/24 14:46 04/02/24 14:47 Labs: Lab Results 04/02/24 04/02/24 Range/Units 14:46 14:47 WBC 7.8 (4.8-10.8) X10*3/uL RBC 4.50 L (4.60-5.80) X10*6/uL Hgb 13.0 L (14.0-18.0) g/dl Hct 37.5 L (42.0-52.0) % MCV 83.3 (80.0-98.0) fL MCH 28.9 (27.0-33.0) pg MCHC 34.7 (31.0-36.0) g/dl RDW 12.8 (11.0-16.0) % Plt Count 175 D (160-400) X10*3/uL MPV 8.7 L (9.4-12.4) fL Immature Gran % (Auto) 0.4 (0.0-0.4) % Neut % (Auto) 84.3 H (45-73) % Lymph % (Auto) 6.9 L (20-40) % [place] % (Auto) 8.1 (2-11) % Eos % (Auto) 0.0 (0-4) % Baso % (Auto) 0.3 (0-2) % Lymph # (Auto) 0.5 L (1.2-4.9) X10*3/uL [place] # (Auto) 0.6 (0.1-1.2) X10*3/uL Eos # (Auto) 0.0 (0.0-0.4) X10*3/uL Baso # (Auto) 0.0 (0.0-0.2) X10*3/uL Abs Immat Gran (auto) 0.03 (0.00-0.03) X10*3/uL Absolute Neuts (auto) 6.6 (2.0-8.3) x10*3/uL Absolute Nucleated RBC 0.000 (0.0-0.012) X10*3/uL Nucleated RBC % (auto) 0.0 (0.0-0.2) /100WBC Hold Blue Top SEE NOTE Sodium 136 (135-145) mmol/L Potassium 3.2 L D (3.3-5.1) mmol/L Chloride 104 (96-108) mmol/L Carbon Dioxide 23 (22-29) mmol/L Anion Gap 12 (12-20) BUN 20 H (9-16) mg/dL Creatinine 1.11 (0.5-1.4) mg/dL Estim Creat Clear Calc 70.7 Estimated GFR > 60 Random Glucose 119 H (60-115) mg/dL Calcium 8.9 D (8.4-10.2) mg/dL Total Bilirubin 0.7 (0.0-1.0) mg/dL Direct Bilirubin 0.3 (0.0-0.5) mg/dL AST 19 (5-37) U/L ALT 14 (0-40) U/L Alkaline Phosphatase 72 (39-117) U/L Total Protein 6.7 (6.5-8.0) g/dL Albumin 3.8 (3.5-5.0) g/dL Lipase 33 (8-78) U/L Independent Interpretation I performed an independent interpretation of an: EKG Interpretation: NSR 74BPM without ischemic changes Radiology Impression Discussion of test interpretation with radiology: I have reviewed the radiologist's reading. Radiologist Impression: EXAMINATION: XR CHEST CLINICAL INFORMATION: N/V/D COMPARISON: Chest x-ray October 05, 2020 TECHNIQUE: 2 views of the chest were obtained. FINDINGS: Lungs are clear. No pulmonary vascular congestion. There is no pleural effusion. The heart size is normal. The cardiac and mediastinal contours are normal. There are multilevel degenerative changes of dorsal spine. XR/XR chest 2V IMPRESSION: Unremarkable examination. Discharge Plan Discharge Clinical Impression: Vomiting, Diarrhea Patient Disposition: Home, Self-Care Instructions: Gastroenteritis (DC) Additional Instructions: As we discussed, you were seen today for nausea/vomiting/diarrhea. Your labs, EKG, and CXR were reassuring. Recommend you follow up with your PCP within the next 2 days for re-evaluation. Return to the emergency department for: Abdominal pain Fever > 100.4F Passing out Chest pain Prescriptions: No Action atorvastatin 10 mg tablet 1 tab PO DAILY amlodipine 5 mg tablet 1 tab PO DAILY ferrous sulfate [FeroSul] 325 mg (65 mg iron) tablet 1 tab PO DAILY vitamin A-vitamin C-vit E-min Tablet 1 tab PO DAILY omeprazole 40 mg capsule,delayed release(DR/EC) 40 mg PO DAILY docusate sodium [Colace] 100 mg capsule 100 mg PO DAILY Qty: 60 2RF Metamucil (sugar) Powder 1 tsp PO DAILY Qty: 1254 0RF Rx Instructions: One table spoon in a glass of juice or water daily ibuprofen 800 mg tablet 800 mg PO Q8H PRN (Reason: pain) 30 Days Qty: 90 3RF Print Language: Moldovan
[2024-04-02 14:27] VITALS: BP 114/66; PULSE 96; RESP 18; TEMP 36.2; O2SAT 96; BMI 27.6
--- NOTE | 2024-04-02 14:32 | ECG_ITS ---
Test Reason : ARRHYTHMIA Blood Pressure : / mmHG Vent. Rate : 074 BPM Atrial Rate : 074 BPM P-R Int : 148 ms QRS Dur : 092 ms QT Int : 384 ms P-R-T Axes : 013 -32 017 degrees QTc Int : 426 ms Normal sinus rhythm Left axis deviation Borderline ECG No previous ECGs available Referred By: Martha Castillo Electronically Signed By:MIRIAN TORRES
[2024-04-02 14:54] LABS: MANUAL DIFF FLAG NO
[2024-04-02 14:59] LABS: Basophils Percent Auto 0.3 % (0-2); Hematocrit 37.5 % (42.0-52.0); Imm Gran Abs Auto 0.03 X10*3/uL (0.00-0.03); Imm Gran Pct Auto 0.4 % (0.0-0.4); Lymphocytes Absolute Auto 0.5 X10*3/uL (1.2-4.9); Lymphocytes Percent Auto 6.9 % (20-40); Mean Corpuscular HGB Conc 34.7 g/dl (31.0-36.0); Mean Corpuscular Hemoglobin 28.9 pg (27.0-33.0); Mean Corpuscular Volume 83.3 fL (80.0-98.0); Mean Platelet Volume 8.7 fL (9.4-12.4); Monocytes Absolute Auto 0.6 X10*3/uL (0.1-1.2); Monocytes Percent Auto 8.1 % (2-11); Neutrophils Absolute Auto 6.6 x10*3/uL (2.0-8.3); Neutrophils Percent Auto 84.3 % (45-73); Platelet Count 175 X10*3/uL (160-400); Red Cell Distribution Width 12.8 % (11.0-16.0); White Blood Count 7.8 X10*3/uL (4.8-10.8)
[2024-04-02 15:13] VITALS: BP 112/66; PULSE 76; RESP 16; O2SAT 93
[2024-04-02 15:18] LABS: Alanine Aminotransferase 14 U/L (0-40); Albumin Level 3.8 g/dL (3.5-5.0); Alkaline Phosphatase 72 U/L (39-117); Anion Gap 12 (12-20); Aspartate Amino Transferase 19 U/L (5-37); Bilirubin Direct 0.3 mg/dL (0.0-0.5); Bilirubin Total 0.7 mg/dL (0.0-1.0); Blood Urea Nitrogen 20 mg/dL (9-16); Calcium 8.9 mg/dL (8.4-10.2); Carbon Dioxide 23 mmol/L (22-29); Chloride 104 mmol/L (96-108); Creatinine Clr Calc Pharmacy 70.7; Estimated Glomerular Filt Rate > 60; Glucose Random 119 mg/dL (60-115); Lipase 33 U/L (8-78); Potassium 3.2 mmol/L (3.3-5.1); Sodium 136 mmol/L (135-145); Total Protein 6.7 g/dL (6.5-8.0)
[2024-04-02 18:01] VITALS: BP 118/65; PULSE 83; RESP 18; TEMP 36.8; O2SAT 95
== END 2024-04-02 18:02 | disposition home or self-care (01) ==
PROVIDERS: Emergency Provider Emergency Medicine
DX: R11.2 Nausea with vomiting, unspecified (principal); R19.7 Diarrhea, unspecified; I10 Essential (primary) hypertension; D50.9 Iron deficiency anemia, unspecified; Z79.899 Other long term (current) drug therapy
CPT/HCPCS: 36415; 71046; 80048; 80076; 83690; 85025; 93005; 99283; 99284

== ENCOUNTER → 2024-04-02 14:32 | Outpatient (BNV) | payer MEDICARE, SELFPAY | PROVIDERS: Emergency Provider Emergency Medicine; Visit Provider Internal Medicine | DX: I49.9 Cardiac arrhythmia, unspecified (principal) | CPT/HCPCS: 93010 ==

== ENCOUNTER 2024-05-05 12:23 | Outpatient (REF) | payer OTHER, SELFPAY ==
[2024-05-05 13:45] LABS: Alanine Aminotransferase 13 U/L (0-40); Albumin Level 4.4 g/dL (3.5-5.0); Alkaline Phosphatase 90 U/L (39-117); Anion Gap 12 (12-20); Aspartate Amino Transferase 13 U/L (5-37); Bilirubin Total 0.5 mg/dL (0.0-1.0); Blood Urea Nitrogen 15 mg/dL (9-16); Carbon Dioxide 25 mmol/L (22-29); Chloride 108 mmol/L (96-108); Cholesterol 150 mg/dL (<200); Estimated Glomerular Filt Rate > 60; Glucose Random 117 mg/dL (60-115); HDL Cholesterol 58 mg/dL (>40); LDL Cholesterol Calculated 72 mg/dL (<100); Potassium 3.4 mmol/L (3.3-5.1); Sodium 142 mmol/L (135-145); Total Protein 7.1 g/dL (6.5-8.0); Triglycerides 104 mg/dL (<150)
[2024-05-05 14:06] LABS: Prostate Specific Antigen 3.36 ng/mL (<0.05-4.0)
== END 2024-05-05 12:24 | disposition home or self-care (01) ==
LOC: HO.LAB 12:23
PROVIDERS: PCP Internal Medicine; Visit Provider Internal Medicine
DX: E78.00 Pure hypercholesterolemia, unspecified (principal); I10 Essential (primary) hypertension; K22.70 Barrett's esophagus without dysplasia; Z68.28 Body mass index [BMI] 28.0-28.9, adult; Z86.010 Personal history of colon polyps; Z12.5 Encounter for screening for malignant neoplasm of prostate
CPT/HCPCS: 36415; 80053; 80061; 84153

== ENCOUNTER 2024-06-26 16:43 | Outpatient (REF) | payer OTHER, SELFPAY ==
[2024-06-26 18:15] LABS: Hematocrit 47.3 % (42.0-52.0); Hemoglobin 15.7 g/dl (14.0-18.0); Mean Corpuscular HGB Conc 33.2 g/dl (31.0-36.0); Mean Corpuscular Hemoglobin 28.8 pg (27.0-33.0); Mean Corpuscular Volume 86.8 fL (80.0-98.0); Mean Platelet Volume 8.5 fL (9.4-12.4); Platelet Count 296 X10*3/uL (160-400); Red Blood Count 5.45 X10*6/uL (4.60-5.80); Red Cell Distribution Width 12.9 % (11.0-16.0); White Blood Count 7.4 X10*3/uL (4.8-10.8)
[2024-06-26 18:44] LABS: Iron 94 mcg/dL (45-160); Percent Iron Saturation 31 % (15-50); Total Iron Binding Capacity 301 mcg/dL (228-428); Unsaturated Iron Binding 207 ug/dL
[2024-06-26 19:00] LABS: Ferritin 231 ng/mL (20-250)
== END 2024-06-26 16:44 | disposition home or self-care (01) ==
LOC: HO.LAB 16:43
PROVIDERS: Visit Provider Internal Medicine Gastroenterology
DX: D50.9 Iron deficiency anemia, unspecified (principal)
CPT/HCPCS: 36415; 82728; 83540; 85027

== ENCOUNTER 2024-07-21 10:02 | Outpatient (REF) | payer OTHER, SELFPAY ==
[2024-07-21 10:42] LABS: MANUAL DIFF FLAG NO
[2024-07-21 11:33] LABS: Basophils Percent Auto 0.5 % (0-2); Eosinophils Percent Auto 0.2 % (0-4); Hematocrit 45.1 % (42.0-52.0); Hemoglobin 14.8 g/dl (14.0-18.0); Imm Gran Abs Auto 0.06 X10*3/uL (0.00-0.03); Lymphocytes Absolute Auto 1.1 X10*3/uL (1.2-4.9); Lymphocytes Percent Auto 17.5 % (20-40); Mean Corpuscular HGB Conc 32.8 g/dl (31.0-36.0); Mean Corpuscular Hemoglobin 28.4 pg (27.0-33.0); Mean Corpuscular Volume 86.4 fL (80.0-98.0); Mean Platelet Volume 8.4 fL (9.4-12.4); Monocytes Absolute Auto 0.4 X10*3/uL (0.1-1.2); Monocytes Percent Auto 6.2 % (2-11); Neutrophils Absolute Auto 4.7 x10*3/uL (2.0-8.3); Neutrophils Percent Auto 74.6 % (45-73); Platelet Count 246 X10*3/uL (160-400); Red Blood Count 5.22 X10*6/uL (4.60-5.80); Red Cell Distribution Width 12.6 % (11.0-16.0); White Blood Count 6.3 X10*3/uL (4.8-10.8)
[2024-07-21 12:45] LABS: Alanine Aminotransferase 21 U/L (0-40); Albumin Level 4.8 g/dL (3.5-5.0); Alkaline Phosphatase 98 U/L (39-117); Anion Gap 14 (12-20); Aspartate Amino Transferase 20 U/L (5-37); Bilirubin Total 0.5 mg/dL (0.0-1.0); Blood Urea Nitrogen 30 mg/dL (9-16); Carbon Dioxide 26 mmol/L (22-29); Chloride 105 mmol/L (96-108); Estimated Glomerular Filt Rate > 60; Glucose Random 112 mg/dL (60-115); Iron 83 mcg/dL (45-160); Percent Iron Saturation 28 % (15-50); Potassium 3.9 mmol/L (3.3-5.1); Sodium 141 mmol/L (135-145); Total Iron Binding Capacity 292 mcg/dL (228-428); Total Protein 7.8 g/dL (6.5-8.0); Unsaturated Iron Binding 209 ug/dL
[2024-07-21 12:52] LABS: Ferritin 248 ng/mL (20-250)
[2024-07-23 13:22] LABS: Prot Elec - Albumin 4.4 g/dL (3.8-4.8); Prot Elec - Alpha1 0.3 g/dL (0.2-0.3); Prot Elec - Alpha2 0.8 g/dL (0.5-0.9); Prot Elec - Beta 1 0.5 g/dL (0.4-0.6); Prot Elec - Beta 2 0.4 g/dL (0.2-0.5); Prot Elec - Gamma 0.9 g/dL (0.8-1.7); Prot Elec - Total Protein 7.2 g/dL (6.1-8.1)
[2024-07-24 10:14] LABS: Kappa Light Chain, Free Serum 18.5 mg/L (3.3-19.4); Kappa/Lambda Lt Ch Free Ratio 1.42 (0.26-1.65)
[2024-07-24 19:03] LABS: IgA 241 mg/dL (70-320); IgG 959 mg/dL (600-1540); IgM 99 mg/dL (50-300)
== END 2024-07-21 10:03 | disposition home or self-care (01) ==
LOC: HO.LAB 10:02
PROVIDERS: PCP Internal Medicine; Visit Provider Internal Medicine Hematology & Oncology
DX: D50.0 Iron deficiency anemia secondary to blood loss (chronic) (principal); D47.2 Monoclonal gammopathy
CPT/HCPCS: 36415; 80053; 82728; 82784; 83521; 83540; 84165; 85025; 86334

== ENCOUNTER 2024-11-11 09:42 | Outpatient (REF) | payer MEDICARE, SELFPAY ==
--- OUTSIDE RECORDS SUMMARY | 2024-11-11 10:52 | XMS_ITS ---
Author Organization [facility] Address [address] [place] [address] Care Team Providers Care Pipe Line Inspector Name Role Phone Sanjana Dalton Primary Care Provider Unavailab Merlin Porter Jr Unavailable [phone] REASON FOR VISIT iron pills Encounters Encounter Location Date Provider Diagnosis [facility] [address] [place] [address] 07/21/2024 Merlin Chaudhry Jr PLAN OF TREATMENT Next Appt Details Provider Name:Merlin law Jr, 07/22/2025 09:20:00 AM, [address], [address], [place], [address],
--- OUTSIDE RECORDS SUMMARY | 2024-11-11 10:53 | XMS_ITS | Clinical Summary ---
Author Organization [facility] Address [address] [place] [address] Care Team Providers Care System Controller Name Role Phone Sanjana Dalton MD Primary Care Provider [phone] Allergies No known active allergies Medications Medication Sig Dispensed Refills Start Date End Date Status ibuprofen (ADVIL,MOTRIN) 800 MG tablet Take 1 tablet (800 mg total) by mouth every 8 (eight) hours as needed for pain. 0 Active Multiple Vitamins-Minerals (OCUVITE ADULT 50+ PO) Take 2 tablets by mouth daily. 0 Active atorvastatin (LIPITOR) tablet 10 mg Take 1 tablet (10 mg total) by mouth every evening. 0 Active omeprazole (PriLOSEC) 40 MG capsule Take 1 capsule (40 mg total) by mouth daily. 0 Active AMLODIPINE BESYLATE PO Take 10 mg by mouth. 0 Active FERROUS SULFATE PO Take by mouth. 0 Ac tive Active Problems Problem Noted Date Diagnosed Date Iron deficiency anemia due to chronic blood loss 09/09/2022 MGUS (monoclonal gammopathy of unknown significa nce) 09/09/2022 Family History Medical History Relation Name Comments Diabetes Father Aquiles Stroke Father Aquiles Relation Name Status Comments Father Aquiles Social History Tobacco Use Types Packs/Day Years Used Date Smoking Tobacco: Former Cigarettes 5 20 Cigars Smokeless Tobacco: Former Chew Alcohol Use Standard Drinks/Week Comments Yes 0 (1 standard drink = 0.6 oz pur e alcohol) occasionally Sex and Gender Information Value Date Recorded Sex Assigned at Not on file Gender Identity Not on file Sexual Orientation Not on file Job Start Date Occupation Industry Not on file Not on file Not on file Last Filed Vital Signs Vital Sign Reading Time Taken Comments Blood Pressure 140/71 08/03/2023 2:07 PM EDT Pulse 80 08/03/2023 2:07 PM EDT Temperature 36.3 ??C (97.3 ??F) 08/03/2023 2:07 PM ED T Respiratory Rate - - Oxygen Saturation 100% 08/03/2023 2:07 PM EDT Inhaled Oxygen Concentration - - Weight 86.4 kg (190 lb 6.4 oz) 08/03/2023 2:07 P M EDT Height 175.3 cm (5' 9 ) 08/04/2021 1:53 PM EDT Body Mass Index 28.12 08/04/2021 1:53 PM EDT Plan of Treatment Health Maintenance Due Date Last Done Comments Hepatitis C Screening 1957 COVID-19 Vaccine (#1) 1962 Pneumococcal Vaccine (1 of 2 - PCV) 1963 Depression Screening 1969 Preventative Health Evaluation 1975 DTap / Tdap / Td (1 - Tdap) 1976 Shingrix-Zoster Vaccine (1 of 2) 1976 Colon Cancer Screening (Colonoscopy) 2002 Fall Risk Assessment 2022 Influenza Vaccine (#1) 2024 RSV Adult > 60+ Yrs or Pregn ant (1 - 1-dose 75+ series) 2032 Hepatitis B Vaccines Aged Out No long er eligible based on patient's age to complete this topic RSV Ped < 20 months Aged Out No longe r eligible based on patient's age to complete this topic Care Teams System Controller Relationship Specialty Start Date End Date Sanjana Dalton MD [facility] [address] [place] [address] PCP - General Internal Medicine 08/04/21
--- OUTSIDE RECORDS SUMMARY | 2024-11-11 10:53 | XMS_ITS ---
Author Organization [facility] Address [address] [place] [address] Care Team Providers Care Synchronizer Name Role Phone Viryprudencio Sanjana Primary Care Provider Unavailab Merlin Porter Jr Unavailable REASON FOR VISIT labs Encounters Encounter Location Date Provider Diagnosis [facility] [address] [place] [address] 07/03/2024 Merlin Chaudhry Jr PLAN OF TREATMENT Next Appt Details Provider Name:Merlin law Jr, 07/22/2025 09:20:00 AM, [address], [address], [place], [address],
--- OUTSIDE RECORDS SUMMARY | 2024-11-11 10:53 | XMS_ITS ---
Author Organization [facility] Address [address] [place] [id number] Care Team Providers Care Account Engineer Name Role Phone Sanjana Dalton Primary Care Provider Merlin Benavides Jr Unavailable ALLERGIES No Known Allergies REASON FOR VISIT Patient presents today for adams's MEDICATIONS Medication SIG (Take, Route, Frequency, Duration) Notes Start Date End Date Status Omeprazole 40 MG 1 capsule 30 minutes before morning meal Orally Once a day for 30 day(s) 03/14/2022 Active Atorvastatin Calcium 10 MG TAKE 1 TABLET BY MOUTH EVERY DAY Oral for 30 Active amLODIPine Besylate 5 MG TAKE 1 TABLET B Y MOUTH EVERY DAY Oral for 30 Active Ocuvite Extra - as directed Orally Active FeroSul 325 (65 Fe) MG TAKE 1 TABLET BY MOUTH DAILY Oral for 30 Active ibuprofen Active Amoxicillin 500 MG 1 capsule Orally onc e a day 03/17/2022 Active SOCIAL HISTORY Tobacco Use: Social History Observation Description Date Details (start date - stop date) Never Smoker NA - NA Sex Assigned At : Social History Observation Description Sex Assigned At Unknown Tobacco Use/Smoking Question Answer Notes Patient is a nonsmoker Alcohol Screen Question Answer Notes Did you have a drink containing alcohol in the p ast year? No Points 0 Interpretation Negative VITAL SIGNS BMI 22.92 kg/m2 07/21/2024 Blood pressure systolic 000 mm Hg 07/21/20 24 Blood pressure diastolic 00 mm Hg 024 Height 69 in 07/21/2024 Temperature 97.3 degrees Fahrenheit 07/21/20 24 Weight 155 lb 4 oz lbs 07/21/2024 Encounters Encounter Location Date Provider Diagnosis [facility] [address] [place] [address] 07/21/2024 Merlin Chaudhry Jr Iron deficiency anemia, unspecified iron deficiency anemia type D50.9 and Adams's esophagus without dysplasia K22.70 ASSESSMENTS Encounter Date Diagnosis Assessment Notes Treatment Notes Treatment Clinical Notes 07/21/2024 Iron deficiency anemia, unspecified iron deficiency anemia type (ICD-10 - D50.9) labs to be done in Feb,Serum iron test material was printed 07/21/2024 Adams's esophagus without dysplasia (ICD-10 - K22.70) PLAN OF TREATMENT Treatment Notes Assessment Notes Iron deficiency anemia, unsp ecified iron deficiency anemia type labs to be done in Feb,Serum iron test material was printed Pending Test Test Name Order Date IRON + IBC (FE) 07/21/2024 FERRITIN 07/21/2024 CBC w/o DIFF 07/21/2024 Next Appt Details Follow Up: 1 Year, Reason: Provider Name:Merlin law Jr, 07/22/2025 09:20:00 AM, [address] [place] [address], [address], [place], [address],
--- OUTSIDE RECORDS SUMMARY | 2024-11-11 10:54 | XMS_ITS | Patient Health Record ---
Author Organization [facility] Address [address] [place] [address] Care Team Providers Care Hand Cloth Cutter Name Role Phone Krystle Sanjana Primary Care Provider Mrelin Benavides Jr Unavailable ALLERGIES No Known Allergies RESULTS Component Value Reference Range Notes Complete Blood Count no Diff Reviewed date:02/07/2024 10:12:12 AM Interpretation: Performing Lab:[facility], [address] [place] [phone] Notes/Report: White Blood Count 4.0 4.8-10.8 X10*3/uL Red Blood Count 4.82 4.60-5.80 X10*6/uL Hemoglobin 13.9 14.0-18.0 g/dl Hematocrit 42.8 42.0-52.0 % Mean Corpuscular Volume 88.8 80.0-98.0 fL Mean Corpuscular Hemoglobin 28.8 27.0-33.0 pg Mean Corpuscular HGB Conc 32.5 31.0-36.0 g/dl Red Cell Distribution Width 13.0 11.0-16.0 % Platelet Count 235 160-400 X10*3/uL Mean Platelet Volume 8.2 9.4-12.4 fL NRBC Pct Auto 0.0 0.0-0.2 /100WBC NRBC Abs Auto 0.000 0.0-0.012 X10*3/uL IRON PROFILE Reviewed date:02/07/2024 10:12:30 AM Interpretation: Performing Lab:[facility], [address] [place] [phone] Notes/Report: Iron 70 45-160 mcg/dL Total Iron Binding Capacity 284 228-428 mcg/d L Percent Iron Saturation 25 15-50 % Unsaturated Iron Binding 214 Complete Blood Count no Diff Reviewed date:07/03/2024 09:53:02 AM Interpretation: Performing Lab:[facility], [address] [place] [phone] Notes/Report: White Blood Count 7.4 4.8-10.8 X10*3/uL Red Blood Count 5.45 4.60-5.80 X10*6/uL Hemoglobin 15.7 14.0-18.0 g/dl Hematocrit 47.3 42.0-52.0 % Mean Corpuscular Volume 86.8 80.0-98.0 fL Mean Corpuscular Hemoglobin 28.8 27.0-33.0 pg Mean Corpuscular HGB Conc 33.2 31.0-36.0 g/dl Red Cell Distribution Width 12.9 11.0-16.0 % Platelet Count 296 160-400 X10*3/uL Mean Platelet Volume 8.5 9.4-12.4 fL NRBC Pct Auto 0.0 0.0-0.2 /100WBC NRBC Abs Auto 0.000 0.0-0.012 X10*3/uL IRON PROFILE Reviewed date:07/03/2024 09:53:12 AM Interpretation: Performing Lab:[facility], [address] [place] [phone] Notes/Report: Iron 94 45-160 mcg/dL Total Iron Binding Capacity 301 228-428 mcg/d L Percent Iron Saturation 31 15-50 % Unsaturated Iron Binding 207 Ferritin Reviewed date:07/03/2024 09:53:19 AM Interpretation: Performing Lab:[address] [phone] Notes/Report: Ferritin 231 20-250 ng/mL REASON FOR REFERRAL No Information MEDICATIONS Medication SIG (Take, Route, Frequency, Duration) Notes Start Date End Date Status ibuprofen Active Omeprazole 40 MG 1 capsule 30 minutes before morning meal Orally Once a day for 30 day(s) 03/14/2022 Active Amoxicillin 500 MG 1 capsule Orally onc e a day 03/17/2022 Active Atorvastatin Calcium 10 MG TAKE 1 TABLET BY MOUTH EVERY DAY Oral for 30 Active amLODIPine Besylate 5 MG TAKE 1 TABLET B Y MOUTH EVERY DAY Oral for 30 Active Ocuvite Extra - as directed Orally Active FeroSul 325 (65 Fe) MG TAKE 1 TABLET BY MOUTH DAILY Oral for 30 Active IMMUNIZATIONS Vaccine Route Administration Date Status Comme nts Influenza Unknown 08/23/2021 Administered Influenza Unknown 07/09/2024 Administered SOCIAL HISTORY Tobacco Use: Social History Observation Description Date Details (start date - stop date) Never Smoker NA - NA Sex Assigned At : Social History Observation Description Sex Assigned At Unknown Tobacco Use/Smoking Question Answer Notes Patient is a nonsmoker Alcohol Screen Question Answer Notes Did you have a drink containing alcohol in the p ast year? No Points 0 Interpretation Negative PROBLEMS Problem Type ICD Code Onset Dates Problem Status W/U Status Risk SNOMED Code Notes Problem Ulcer of esophagus without bleeding (K22.10) Active confirmed 88271158 Problem Gutierrez's esophagus without dysplasia (K22.70) Active confirmed 728598676 Problem Iron deficiency anemia due to chronic blood loss (D50.0) Active confirmed 224405609 Problem Iron deficiency anemia, unspecified iron deficiency anemia type (D50.9) Active confirmed 40573418 VITAL SIGNS Temperature 97.3 degrees Fahrenheit 07/21/2024 Blood pressure diastolic 00 mm Hg 07/21/2024 Height 69 in 07/21/2024 Blood pressure systolic 000 mm Hg 07/21/2024 Weight 155 lb 4 oz lbs 07/21/2024 BMI 22.92 kg/m2 07/21/2024 Encounters Encounter Location Date Provider Diagnosis [facility] [address] [place] [phone] 07/21/2024 Merlin Chaudhry Jr Iron deficiency anemia, unspecified iron deficiency anemia type D50.9 and Gutierrez's esophagus without dysplasia K22.70 [facility] [address] [place] [phone] 02/07/2024 Merlin Chaudhry Jr Iron deficiency anemia, unspecified iron deficiency anemia type D50.9 [facility] [address] [place] [phone] 07/03/2024 Merlin Chaudhry Jr [facility] [address] [place] [phone] 07/21/2024 Merlin Chaudhry Jr ASSESSMENTS Encounter Date Diagnosis Assessment Notes Treatment Notes Treatment Clinical Notes 07/21/2024 Gutierrez's esophagus without dysplasia (ICD-10 - K22.70) 07/21/2024 Iron deficiency anemia, unspecified iron deficiency anemia type (ICD-10 - D50.9) labs to be done in Nov,Serum iron test material was printed 02/07/2024 Iron deficiency anemia, unspecified iron deficiency anemia type (ICD-10 - D50.9) Lab work to be done in June. PLAN OF TREATMENT Pending Test Test Name Order Date IRON + IBC (FE) 02/07/2024 IRON + IBC (FE) 07/19/2023 IRON + IBC (FE) 07/21/2024 FERRITIN 07/19/2023 FERRITIN 07/21/2024 FERRITIN 02/07/2024 CBC w/o DIFF 07/19/2023 CBC w/o DIFF 07/21/2024 CBC w/o DIFF 02/07/2024 Future Test Test Name Order Date UPPER GI ENDOSCOPY 02/22/2022 COLONOSCOPY 02/22/2022 UPPER GI ENDOSCOPY 03/17/2022 Next Appt Details Provider Name:Merlin law , 07/22/2025 09:20:00 AM, [address] [place] [address], [address], [place], [address], Insurance Providers Payer Name Payer Address Payer Phone Subscriber Number Group Number Insured Name Patient Relationship to Insured Coverage Start Date Coverage End Date [facility] [address] [address] [place] [address] [id number] PHYLICIA SOW Self - patient is the insured MEDICAID OF [facility] [address] [place] [address] [phone] [id number] PHYLICIA SOW Self - patient is the insured MEDICAL (GENERAL) HISTORY Medical History History ICD Code Hypertension Elevated cholesterol Nephrolithiasis and renal cyst Covid-19 10/2021 Cataracts and macular degeneration Iron deficiency anemia Colonoscopy, 03/22, tubular adenoma, five -year followup H. pylori infection, 03/22, treated EGD 03/22, large esophageal u lcer, followup EGD showed healing. Gutierrez's esophagus 31-25 cm, no dysplasia, three-year followup Surgical History Surgery Date(Month/Year) Right inguinal herniorrhaphy 2017
--- OUTSIDE RECORDS SUMMARY | 2024-11-11 10:54 | XMS_ITS | Clinical Summary ---
Author Organization [facility] Address [address] [place] [address] Phone Care Team Providers Care Sulfate Drier Machine Operator Name Role Phone Sanjana Dalton MD Primary Care Provider [phone] Allergies No known active allergies Medications amLODIPine besylate, bulk, 100 % powder Take 10 mg by mouth. Active ferrous sulfate, dried, bulk, 100 % powder Take by mouth. Active ibuprofen (ADVIL,MOTRIN) 800 mg tablet Take 1 tablet (800 mg total) by mouth every 8 hours as needed. Active atorvastatin (LIPITOR) 10 mg tablet Take 1 tablet (10 mg total) by mouth at bedtime. Active mv-mn/om3/dha/e pa/fish/lut/tip (OCUVITE ADULT 50 PLUS ORAL) Take 2 tablets by mouth 1 (one) time each day. Active omeprazole (PriLOSEC) [address] capsule Take 1 capsule (40 mg total) by mouth 1 (one) time each day. Active Active Problems Problem Noted Date Diagnosed Date Iron deficiency anemia due to chronic blood loss 09/09/2022 MGUS (monoclonal gammopathy of unknown significa nce) 09/09/2022 Encounters Date Type Department Care Team Description 08/21/2024 3:00 PM EST Office Visit [facility] Hematology Oncology [address] [place] [address] Isaiah Alves MD MGUS (monoclonal gammopathy of unknown significance) (Primary Dx); Iron deficiency anemia due to dietary causes; Iron deficiency anemia due to chronic blood loss from Last 3 Months Surgical History Surgery Date Site/Laterality Comments HERNIA REPAIR PROCEDURE:HERNIA REPAIR COLONOSCOPY PROCEDURE:COLONOSCOPY Medical History Medical History Date Comments Anemia DX:Anemia HLD (hyperlipidemia) DX:HLD (hyp erlipidemia) Family History Medical History Relation Name Comments Diabetes Father Aquiles Stroke Father Aquiles Relation Name Status Comments Father Aquiles Social History Tobacco Use Types Packs/Day Years Used Date Smoking Tobacco: Former Cigarettes Smokeless Tobacco: Former Alcohol Use Standard Drinks/Week Comments Yes 0 (1 standard drink = 0.6 oz pur e alcohol) Sex and Gender Information Value Date Recorded Sex Assigned at Not on file Legal Sex Male 6:58 PM EST Gender Identity Not on file Sexual Orientation Not on file Obstetrics History Last Filed Vital Signs Vital Sign Reading Time Taken Comments Blood Pressure 135/110 08/21/2024 3:05 PM EST Pulse 75 08/21/2024 3:05 PM EST Temperature 36.7 ??C (98 ??F) 08/21/2024 3:05 PM EST Respiratory Rate - - Oxygen Saturation 100% 08/21/2024 3:05 PM EST Inhaled Oxygen Concentration - - Weight 68.9 kg (152 lb) 08/21/2024 3:05 PM EST Height - - Body Mass Index - - Plan of Treatment Upcoming Encounters Date Type Department Care Team (Late st Contact Info) Description 08/21/2025 2:00 PM EST Office Visit [facility] Hematology Oncology [address] [place] [address] Isaiah Alves MD [address] [place] [address] Health Maintenance Due Date Last Done Comments COVID-19 Vaccine (#1) 1962 DTaP,Tdap,and Td Vaccines (1 - Tdap) 1964 Pneumococcal Vaccine: 50+ Ye ars (1 of 2 - PCV) 1976 Zoster Vaccines (1 of 2) 1976 Abdominal Aortic Aneurysm (A AA) Screen 09/08/2022 Cholesterol Screening (Lipid Panel) 09/08/2022 Colorectal Cancer Screening: Colonoscopy 09/08/2022 Depression Screening 09/08/2022 Falls Risk Assessment 09/08/2022 Hepatitis C Screening 09/08/2022 Medicare Annual Wellness Visit 09/08/2022 Social Influencers of Health Screening 09/08/2022 Influenza Vaccine (#1) 2024 RSV Immunization Patients 60 + Years Old (1 - 1-dose 75+ series) 2032 HIB Vaccines Aged Out No longer eligi ble based on patient's age to complete this topic HPV Vaccines Aged Out No longer eligi ble based on patient's age to complete this topic Hepatitis A Vaccines Aged Out No long er eligible based on patient's age to complete this topic Hepatitis B Vaccines Aged Out No long er eligible based on patient's age to complete this topic IPV Vaccines Aged Out No longer eligi ble based on patient's age to complete this topic MMR Vaccines Aged Out No longer eligi ble based on patient's age to complete this topic Meningococcal ACWY Vaccine Aged Out N o longer eligible based on patient's age to complete this topic Meningococcal B Vacine Aged Out No lo nger eligible based on patient's age to complete this topic RSV Immunization Patients Un adalgisa 20 months Aged Out No longer eligible b ased on patient's age to complete this topic Varicella Vaccines Aged Out No longer eligible based on patient's age [place] [id number] [place] - [place] [employer] MEDICARE on file Care Teams Sulfate Drier Machine Operator Relationship Specialty Start Date End Date Sanjana Dalton MD [address] [place] [address] [place] [address] [facility] - General 08/04/21
[2024-11-11 11:29] LABS: Hematocrit 46.2 % (42.0-52.0); Hemoglobin 14.7 g/dl (14.0-18.0); Mean Corpuscular HGB Conc 31.8 g/dl (31.0-36.0); Mean Corpuscular Hemoglobin 28.7 pg (27.0-33.0); Mean Corpuscular Volume 90.2 fL (80.0-98.0); Mean Platelet Volume 8.7 fL (9.4-12.4); Platelet Count 242 X10*3/uL (160-400); Red Blood Count 5.12 X10*6/uL (4.60-5.80); Red Cell Distribution Width 12.6 % (11.0-16.0); White Blood Count 5.2 X10*3/uL (4.8-10.8)
[2024-11-11 12:47] LABS: Iron 92 mcg/dL (45-160); Percent Iron Saturation 30 % (15-50); Total Iron Binding Capacity 305 mcg/dL (228-428); Unsaturated Iron Binding 213 ug/dL
[2024-11-11 12:51] LABS: Ferritin 189 ng/mL (20-250)
== END 2024-11-11 09:43 | disposition home or self-care (01) ==
LOC: HO.LAB 09:42
PROVIDERS: PCP Internal Medicine; Visit Provider Internal Medicine Gastroenterology
DX: D50.9 Iron deficiency anemia, unspecified (principal); K22.70 Barrett's esophagus without dysplasia
CPT/HCPCS: 36415; 82728; 83540; 85027

== ENCOUNTER 2025-02-24 08:44 | Outpatient (REF) | payer MEDICARE, SELFPAY ==
[2025-02-24 08:56] LABS: MANUAL DIFF FLAG NO
--- OUTSIDE RECORDS SUMMARY | 2025-02-24 09:03 | XMS_ITS ---
Author Organization [facility] Address [address] [place] [address] Care Team Providers Care Master Cook Name Role Phone Noéspenser Sanjana Primary Care Provider Unavailab Merlin Porter Jr REASON FOR VISIT iron pills Encounters Encounter Location Date Provider Diagnosis [facility] [address] [place] [address] 07/21/2024 Merlin Chaudhry Jr Plan Of Treatment Next Appt Details Provider Name:Merlin law Jr, 07/22/2025 09:20:00 AM, [address], [address], [place], [address], Progress Notes * PHYLICIA SOW MDOB:1955 (69 yo M)Acc No.[id number]:07/21/2024 Patient:?PHYLICIA SOW :1955???Age:69 Y???Sex:Male Address:[facility] [address] [place], [address] * true * Date:? Generated for Printi ng/Faidegog/eTransmitting on:?02/24/2025 09:03 AM EDT
[2025-02-24 09:11] LABS: Basophils Percent Auto 0.9 % (0-2); Eosinophils Absolute Auto 0.1 X10*3/uL (0.0-0.4); Eosinophils Percent Auto 1.4 % (0-4); Hematocrit 40.7 % (42.0-52.0); Hemoglobin 13.2 g/dl (14.0-18.0); Imm Gran Abs Auto 0.04 X10*3/uL (0.00-0.03); Imm Gran Pct Auto 0.9 % (0.0-0.4); Lymphocytes Absolute Auto 1.3 X10*3/uL (1.2-4.9); Lymphocytes Percent Auto 29.8 % (20-40); Mean Corpuscular HGB Conc 32.4 g/dl (31.0-36.0); Mean Corpuscular Hemoglobin 28.9 pg (27.0-33.0); Mean Corpuscular Volume 89.1 fL (80.0-98.0); Mean Platelet Volume 8.5 fL (9.4-12.4); Monocytes Absolute Auto 0.3 X10*3/uL (0.1-1.2); Monocytes Percent Auto 7.7 % (2-11); Neutrophils Absolute Auto 2.5 x10*3/uL (2.0-8.3); Neutrophils Percent Auto 59.3 % (45-73); Platelet Count 210 X10*3/uL (160-400); Red Blood Count 4.57 X10*6/uL (4.60-5.80); Red Cell Distribution Width 12.6 % (11.0-16.0); White Blood Count 4.3 X10*3/uL (4.8-10.8)
[2025-02-24 09:44] LABS: Alanine Aminotransferase 22 U/L (0-40); Albumin Level 4.6 g/dL (3.5-5.0); Alkaline Phosphatase 77 U/L (39-117); Anion Gap 10 (12-20); Aspartate Amino Transferase 19 U/L (5-37); Bilirubin Total 0.3 mg/dL (0.0-1.0); Blood Urea Nitrogen 29 mg/dL (9-16); Calcium 9.4 mg/dL (8.4-10.2); Carbon Dioxide 29 mmol/L (22-29); Chloride 107 mmol/L (96-108); Cholesterol 149 mg/dL (<200); Estimated Glomerular Filt Rate > 60; Glucose Random 102 mg/dL (60-115); HDL Cholesterol 65 mg/dL (>40); LDL Cholesterol Calculated 66 mg/dL (<100); Potassium 3.6 mmol/L (3.3-5.1); Sodium 142 mmol/L (135-145); Total Protein 7.1 g/dL (6.5-8.0); Triglycerides 90 mg/dL (<150)
[2025-02-24 10:02] LABS: Prostate Specific Antigen 2.42 ng/mL (<0.05-4.0)
[2025-02-24 10:04] LABS: Ferritin 186 ng/mL (20-250)
== END 2025-02-24 08:45 | disposition home or self-care (01) ==
LOC: HO.LAB 08:44
PROVIDERS: PCP Internal Medicine; Visit Provider Internal Medicine
DX: D47.2 Monoclonal gammopathy (principal); D50.8 Other iron deficiency anemias; E78.2 Mixed hyperlipidemia; I10 Essential (primary) hypertension; K22.70 Barrett's esophagus without dysplasia; Z12.5 Encounter for screening for malignant neoplasm of prostate
CPT/HCPCS: 36415; 80053; 80061; 82728; 84153; 85025

== ENCOUNTER 2025-04-23 08:21 | Outpatient (RCR) | payer OTHER, MEDICAID, SELFPAY | END 2025-05-07 10:31 | disposition home or self-care (01) | LOC: HO.PT 08:21 | PROVIDERS: PCP Internal Medicine; Visit Provider Internal Medicine | DX: M25.511 Pain in right shoulder (principal); M25.611 Stiffness of right shoulder, not elsewhere classified | CPT/HCPCS: 97110; 97140; 97162; 97535 ==

== ENCOUNTER 2025-06-08 09:37 | Outpatient (RCR) | payer OTHER, MEDICAID, SELFPAY ==
--- NOTE | 2025-05-13 13:54 | MHC.OT.EP ---
[facility] Office [address] [phone] F: [phone] F: [phone] Occupational Therapy Plan of Care Patient Name: Flaco Arellano Date of Evaluation: 05/13/25 Diagnosis: Right Arm Pain Pain Location: No c/o pain, reports weakness only Pain Score: 0 Pain Scale Used: Numeric (0 - 10) Aggravating Factors: Overuse (yard work) Assessment: 70 yo male w/ hx of trauma to right arm (late /early ) while walking his two dogs during a snow storm. Got pulled by dogs while slipping on ice, fell down w/ elbow to ground. He has completed round of occupational therapy 2021 for lateral epicondylitis with myself with improvements in strength and general use of arm). He has also trialed physical therapy with no significant gains and is now referred back to OT for addressing right arm/hand weakness. On assessment today, he has good range in elbow, wrist and digits (guarded through right shoulder) and no significant edema or atrophy. FMC is WFL and he reports no sensory changes or pain at this time. Primary complaint is weakness and he is unable to register spinner frame or pinch with formal testing, although able to grasp blue foam that was given for home program. Manual Muscle Testing is inconsistent through elbow, wrist and digits. We will continue brief course of OT for strengthening and encourage daily use of right hand and arm. *Of note, during previous OT session in 2021, initial gross grasp 15lb and at discharge was 32lb with good understanding of home program and good motivation through treatment Frequency and Duration: The patient will be seen 2x/wk for 3 weeks Short Term Goals: see below Funeral Location Manager Goals: Right gross grasp >10lb Ind w/ progression of strengthening Pt to report ease w/ light bimanual lift and carry tasks at home Treatment Plan: Therapeutic Exercise Therapeutic Activity Home Exercise Program Patient Education ADL Training Electronically Signed By: Sarah Ravi OTR/L CHT Please Sign and return to therapist. Thank you once again for your referral.
--- NOTE | 2025-06-08 11:39 | MHC.OT.DC ---
[facility] Office [address] [phone] F: [phone] F: [phone] Occupational Therapy Discharge Note Patient Name: Flaco Arellano Provider: Dr Sanjana Dalton Diagnosis: Right Arm Pain Date of Evaluation: 05/13/25 Date of Discharge: 06/08/25 Treatments to Date: 7 Discharge Status: Independent with HEP Recommend MD Follow-up Discharge Summary: Flaco was referred to OT w/ chronic right arm pain and weakness after injury about 30 years ago falling onto right side. We have completed course of Ot w/ education on activity modification, general strengthening and mechanics and recommendations for pacing. He continues to have high pain and reports still doing heavy activities at home - this weekend assisted w/ carpet removal and breaking down boxes. He is able to do all functional tasks (mowing, lawncare, homecare, carrying trash bags, tearing up and putting down carpet), but has not yet been able to balance rst with activity. He still has very low honey processor strength but no visible muscle atrophy and he is able to use right hand for all tasks in therapy and with daily activities/forceful use for IADL. Has tolerated therapy well and is Ind w/ home program for strengthening in the setting of chronic pain/injury. No further outpatient services indicated, may benefit from pain management assessment based on level of reported pain. Electronically Signed By: MELINA Castellon/Dalton CHT Reviewed/agree with student documentation: N/A Therapist: Please Sign and return to therapist, thank you for your referral.
== END 2025-06-08 11:39 | disposition home or self-care (01) ==
LOC: HO.OT 09:37
PROVIDERS: PCP Internal Medicine; Visit Provider Internal Medicine
DX: M79.601 Pain in right arm (principal)
CPT/HCPCS: 97110; 97165

== ENCOUNTER 2025-07-24 08:49 | Day surgery (SDC) | payer MEDICARE, SELFPAY ==
--- OUTSIDE RECORDS SUMMARY | 2025-07-22 20:19 | XMS_ITS | Clinical Summary ---
Author Organization [facility] Address [address] [place] [address] Phone Care Team Providers Care Compensation Analyst Name Role Phone Sanjana Dalton MD Primary Care Provider [phone] Allergies No known active allergies Medications amLODIPine [...] (monoclonal gammopathy of unknown significa nce) 09/09/2022 Surgical History Surgery Date Site/Laterality Comments HERNIA [...] 75 08/21/2024 3:05 PM EST Temperature 36.7 C (98 F) 08/21/2024 3:05 PM EST Respiratory Rate - - Oxygen Saturation 100% 08/21/2024 3:05 PM EST Inhaled Oxygen Concentration - - Weight 68.9 kg (152 lb) 08/21/2024 3:05 PM EST Height - - Body Mass Index - - Plan of Treatment Upcoming Encounters Date Type Department Care Team (Late st Contact Info) Description 08/21/2025 2:00 PM EST Office Visit [facility] Hematology Oncology [address] [place] [address] Isaiah Alves MD [address] [place] [address] Health Maintenance Due Date Last Done Comments Colorectal Cancer Screening: Colonoscopy 1955 COVID-19 Vaccine (#1) 1962 DTaP,Tdap,and Td Vaccines (1 - Tdap) 1976 Zoster Vaccines (1 of 2) 1976 Pneumococcal Vaccine: 50+ Ye ars (1 of 1 - PCV) 2007 Abdominal Aortic Aneurysm (A AA) Screen 09/08/2022 Cholesterol Screening (Lipid Panel) 09/08/2022 Falls Risk Assessment 09/08/2022 Hepatitis C Screening 09/08/2022 Medicare Annual Wellness Visit 09/08/2022 Social Influencers of Health Screening 09/08/2022 Depression Screening 10/01/2024 Influenza Vaccine (#1) 2025 RSV Immunization Adult Patie nts (1 - 1-dose 75+ series) 2032 HIB [...] age to complete this topic Meningococcal B Vaccine Aged Out No l onger eligible based on patient's age to complete this topic RSV Immunization Patients Un adalgisa 20 months Aged Out No longer eligible b ased on patient's age to complete this topic Varicella Vaccines Aged Out No longer eligible based on patient's age to complete this topic Insurance [place] [employer] MEDICARE on file Care Teams Compensation Analyst Relationship Specialty Start Date End Date Sanjana Dalton MD [address] [place] [address] [place] [address] PCP - General 08/04/21
--- OUTSIDE RECORDS SUMMARY | 2025-07-22 20:20 | XMS_ITS | Patient Health Record ---
Author Organization [facility] Address [address] [place] [address] Care Team Providers Care Retread Operator Name Role Phone Viryprudencio Sanjana Primary Care Provider UnavailMerlin Cain Jr Unavailable Allergies No Known Allergies Results Component Value Reference Range Notes Complete Blood Count no Diff Reviewed date:11/12/2024 04:21:42 PM Interpretation: Performing Lab:[facility], [address] [place] [phone] Notes/Report: White Blood Count 5.2 4.8-10.8 X10*3/uL Red Blood Count 5.12 4.60-5.80 X10*6/uL Hemoglobin 14.7 14.0-18.0 g/dl Hematocrit 46.2 42.0-52.0 % Mean Corpuscular Volume 90.2 80.0-98.0 fL Mean Corpuscular Hemoglobin 28.7 27.0-33.0 pg Mean Corpuscular HGB Conc 31.8 31.0-36.0 g/dl Red Cell Distribution Width 12.6 11.0-16.0 % Platelet Count 242 160-400 X10*3/uL Mean Platelet Volume 8.7 9.4-12.4 fL NRBC Pct Auto 0.0 0.0-0.2 /100WBC NRBC Abs Auto 0.000 0.0-0.012 X10*3/uL IRON PROFILE Reviewed date:11/12/2024 04:19:59 PM Interpretation: Performing Lab:[facility], [address] [place] [phone] Notes/Report: Iron 92 45-160 mcg/dL Total Iron Binding Capacity 305 228-428 mcg/d L Percent Iron Saturation 30 15-50 % Unsaturated Iron Binding 213 Ferritin Reviewed date:11/12/2024 04:21:35 PM Interpretation: Performing Lab:[facility], [address] [facility], [place] [address] Notes/Report: Ferritin 189 20-250 ng/mL Reason For Referral Referring Provider First Name Sanjana Referring Provider Last Name Krystle Referring Provider Speciality Internal M edicine Referred Organization [facility] Referred Provider Merlin Chaudhry Jr Referred Address [address] [place] [address],[place] [address],[place], [place],[address], Referred Provider Specialty Gastroentero logy General Notes Jenae Cortés 2024 08:16:36 AM > called Dr. Dalton's office to request a [facility] referral for visit with Dr. Chaudhry on 07-22-2025 Referral Priority Routine Medications Medication SIG (Take, Route, Frequency, Duration) Notes Start Date End Date Status Atorvastatin Calcium 10 MG TAKE 1 TABLET BY MOUTH EVERY DAY Oral; Duration: 30 Active Omeprazole 40 MG 1 capsule 30 minutes before morning meal Orally Once a day; Duration: 30 day(s) 03/14/2022 Active amLODIPine Besylate 5 MG TAKE 1 TABLET B Y MOUTH EVERY DAY Oral; Duration: 30 Active Amoxicillin 500 MG 1 capsule Orally onc e a day 03/17/2022 Active ibuprofen Active FeroSul 325 (65 Fe) MG TAKE 1 TABLET BY MOUTH DAILY Oral; Duration: 30 Active Ocuvite Extra - as directed Orally Active Immunizations Vaccine Route Administration Date Status Comme nts Influenza Unknown 08/23/2021 Administered Influenza Unknown 07/09/2024 Administered Influenza Unknown 07/22/2024 Administered Social History Tobacco Use: Social History Observation Description Date Details (start date - stop date) Never Smoker NA - NA Tobacco Use/Smoking Question Answer Notes Patient is a nonsmoker Alcohol Screen Question Answer Notes Did you have a drink containing alcohol in the p ast year? No Points 0 Interpretation Negative Problems Problem Type SNOMED Code ICD Code Onset Dates Problem Status W/U Status Risk Notes Problem Ulcer of esophagus (80206028) Ulcer of esophagus without bleeding (K22.10) Active confirmed Problem Gutierrez's esophagus (199055360) Gutierrez's esophagus without dysplasia (K22.70) Active confirmed Problem Iron deficiency anemia due to chronic blood loss (973785458) Iron deficiency anemia due to chronic blood loss (D50.0) Active confirmed Problem Iron deficiency anemia (23944178) Iron deficiency anemia, unspecified iron deficiency anemia type (D50.9) Active confirmed Vital Signs Temperature 98.4 degrees Fahrenheit 07/22/2025 Blood pressure diastolic 01 mm Hg 07/22/2025 Height 69 in 07/22/2025 Blood pressure systolic 001 mm Hg 07/22/2025 Weight 148.2 lbs 07/22/2025 BMI 21.88 kg/m2 07/22/2025 Encounters Encounter Location Date Provider Diagnosis [facility] [address] [place] [phone] 07/22/2025 Merlin Chaudhry Jr Gutierrez's esophagus without dysplasia K22.70 [facility] [address] [place] [phone] 07/22/2025 Merlin Chaudhry Jr [facility] [address] [place] [phone] 11/12/2024 Merlin Chaudhry Jr [facility] [address] [place] [phone] 06/16/2025 Merlin Chaudhry Jr Assessments Encounter Date Diagnosis (ICD Code) Assessment Notes Treatment Notes Treatment Clinical Notes Section Notes 07/22/2025 Gutierrez's esophagus without dysplasia (ICD-10 - K22.70) Plan Of Treatment Pending Test Test Name Order Date IRON + IBC (FE) 07/19/2023 IRON + IBC (FE) 02/07/2024 IRON + IBC (FE) 07/21/2024 FERRITIN 07/21/2024 FERRITIN 07/19/2023 FERRITIN 02/07/2024 CBC w/o DIFF 02/07/2024 CBC w/o DIFF 07/21/2024 CBC w/o DIFF 07/19/2023 Future Test Test Name Order Date UPPER GI ENDOSCOPY 02/22/2022 COLONOSCOPY 02/22/2022 UPPER GI ENDOSCOPY 03/17/2022 UPPER GI ENDOSCOPY 07/22/2025 Next Appt Details Provider Name:Merlin law Jr, 07/24/2025 11:10:00 AM, [address] [place] [address] , [place], [place], [phone], Insurance Providers Payer Name Payer Address Payer Phone Subscriber Number Group Number Insured Name Patient Relationship to Insured Coverage Start Date Coverage End Date [facility] [address] [place] [address] [id number] PHYLICIA SOW Self - patient is the insured 5 [facility] [address] [place] [address] [id number] PHYLICIA SOW Self - patient is the insured Medical (General) History Medical History History ICD Code Hypertension Elevated cholesterol Nephrolithiasis and renal cyst Covid-19 10/2021 Cataracts and macular degeneration Iron deficiency anemia Colonoscopy, 03/22, tubular adenoma, five -year followup H. pylori infection, 03/22, treated EGD 03/22, large esophageal u lcer, followup EGD showed healing. Gutierrez's esophagus 31-25 cm, no dysplasia, three-year followup Surgical History Surgery Date(Month/Year) Right inguinal herniorrhaphy 2016
--- NOTE | 2025-07-23 08:07 | HO.ANESPROP2 ---
Documented by User: Nelia Richey NP 07/23/25 08:10 HPI - Anesthesia Eval Consult details Narrative: 70yo M for Upper Endoscopy PMFSH Active Problems Active Problems: All Active Problems Anal pain (Acute) Lateral epicondylitis, right elbow (Acute) Epicondylitis elbow, medial (Acute) Past Medical History Medical History Anal pain COVID-19 vaccine series completed Iron deficiency anemia Macular degeneration Renal cyst Renal calculi History of COVID-19 Elevated cholesterol HTN (hypertension) Family History Family history of problems with anesthesia: No Surgical History Surgical History History of esophagogastroduodenoscopy (EGD) Hx of right inguinal hernia repair H/O colonoscopy History of Problems with Anesthesia: No Social History Social History Are you a primary healthcare marketer to a significant other at home: No Do you presently have visiting nurse or other home services: No Patient Tobacco Use Status: Former Tobacco user Tobacco use type: Cigarette Current occupational status: retired Current occupation: rt hand Meds Allergies Allergy/AdvReac Type Severity Reaction Status Date / Time No Known Allergies Allergy Verified 07/24/25 09:40 Home Medications ?Medication ?Instructions ?Recorded ?Confirmed ?Last Taken ?Type amlodipine 5 mg tablet 1 tab PO DAILY 03/08/22 07/24/25 07/24/25 History atorvastatin 10 mg tablet 1 tab PO DAILY 03/08/22 07/24/25 07/13/22 History ferrous sulfate 325 mg (65 mg 1 tab PO DAILY 03/08/22 07/24/25 07/13/22 History iron) tablet (FeroSul) vitamin A-vitamin C-vit E-min 1 tab PO DAILY 03/08/22 07/24/25 07/13/22 History tablet omeprazole 40 mg capsule,delayed 40 mg PO DAILY 06/21/22 07/24/25 07/24/25 History release Assessment and Plan Assessment Anesthesia Assessment: Chart Reviewed Final Anesthetic Review Family History of Problems with Anesthesia: No History of Problems with Anesthesia: No Documented by User: Carey Lamb MD 07/24/25 10:17 PMF Past Medical History Medical History Anal pain COVID-19 vaccine series completed Iron deficiency anemia Macular degeneration Renal cyst Renal calculi History of COVID-19 Elevated cholesterol HTN (hypertension) Surgical History Surgical History History of esophagogastroduodenoscopy (EGD) Hx of right inguinal hernia repair H/O colonoscopy Social History Social History Are you a primary healthcare marketer to a significant other at home: No Do you presently have visiting nurse or other home services: No Patient Tobacco Use Status: Former Tobacco user Tobacco use type: Cigarette Current occupational status: retired Current occupation: rt hand Meds Allergies Allergy/AdvReac Type Severity Reaction Status Date / Time No Known Allergies Allergy Verified 07/24/25 09:40 Home Medications ?Medication ?Instructions ?Recorded ?Confirmed ?Last Taken ?Type amlodipine 5 mg tablet 1 tab PO DAILY 03/08/22 07/24/25 07/24/25 History atorvastatin 10 mg tablet 1 tab PO DAILY 03/08/22 07/24/25 07/13/22 History ferrous sulfate 325 mg (65 mg 1 tab PO DAILY 03/08/22 07/24/25 07/13/22 History iron) tablet (FeroSul) vitamin A-vitamin C-vit E-min 1 tab PO DAILY 03/08/22 07/24/25 07/13/22 History tablet omeprazole 40 mg capsule,delayed 40 mg PO DAILY 06/21/22 07/24/25 07/24/25 History release Exam Airway Mallampati Class: III TM Dist: >3cm Neck ROM: Full Loose/Missing/Broken Teeth: No Heart: RRR Lungs: CTA Assessment and Plan Assessment Anesthesia Assessment: Anesthesia Plan Discussed Final Anesthetic Review NPO: Yes ASA Class: II Final Preanesthetic Review: Meds/Allgs Chart Reviewed, Consent Obtained/Reviewed and Anes Risks/Benef Reviewed Patient Risk: Low Procedure Risk: Intermediate Anesthetic Plan Anesthetic Plan: MAC: Disposition: Standard PACU
[2025-07-24 09:40] VITALS: BMI 21.6
[2025-07-24] MEDS: Lactated Ringers 1,000 ML 100 ML IVCONT (10:10)
[2025-07-24 10:14] VITALS: BP 118/61; PULSE 81; RESP 18; TEMP 36.7; O2SAT 99
--- NOTE | 2025-07-24 10:44 | MHC.SHP ---
Pre-Procedural Eval Section A - 24 Hr Update-Section A only Date of Service: 07/24/25 The patient is an INPATIENT: No Changes since office visit: No Cold of Flu in the past 2 weeks, No New Medical Problems, No Changes in Medication and No Patient answered all questions The patient has been examined within 24 hours of the surgical procedure. 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 No changes have occurred unless specified. Time Spent With Patient Time: Total time managing care of this patient today ____ minutes.
[2025-07-24 11:11] VITALS: BP 93/59; PULSE 75; RESP 16; TEMP 36.9; O2SAT 97
[2025-07-24 11:26] VITALS: BP 111/68; PULSE 77; RESP 18; TEMP 36.8; O2SAT 100
--- NOTE | 2025-07-24 12:55 | OP_ITS ---
DATE OF SERVICE: 07/24/2025 SURGEON: Merlin Chaudhry MD INDICATIONS: Gutierrez esophagus. PREOPERATIVE DIAGNOSIS: POSTOPERATIVE DIAGNOSIS: PROCEDURE PERFORMED: Upper endoscopy with biopsy. ESTIMATED BLOOD LOSS: COMPLICATIONS: ANESTHESIA: Monitored anesthesia care. ASSISTANTS: SPECIMENS: DESCRIPTION OF PROCEDURE: A history and physical was performed. The risks and benefits of the procedure were explained to the patient and informed consent was obtained. The patient was placed in the left lateral decubitus position. The Olympus video gastroscope was introduced into the esophagus, stomach, and duodenum. Examination was performed. The scope was removed. He tolerated the procedure well and was returned to the recovery area in stable condition. FINDINGS: Esophagus: There was a large area of Gutierrez esophagus extending from 27 cm to the EG junction at 35 cm. Biopsies were obtained from throughout the esophagus. There were no raised lesions or ulcerated areas. Stomach: The stomach showed a moderate-sized hiatal hernia. There was no ulceration or mass lesions. Duodenum: The bulb and 2nd portion were normal. IMPRESSION: Gutierrez esophagus. RECOMMENDATION: Follow up the biopsy results. MD ADRIAN Nobles/SONY / [id number]
== END 2025-07-24 12:11 | disposition home or self-care (01) ==
PROVIDERS: Visit Provider Internal Medicine Gastroenterology
PROC: 0DJ08ZZ Inspection of Upper Intestinal Tract, Via Natural or Artificial Opening Endoscopic (ICD-10-PCS; CPT 43235; principal; 2025-07-24 11:10)
DX: K22.70 Barrett's esophagus without dysplasia (principal); K44.9 Diaphragmatic hernia without obstruction or gangrene; D50.9 Iron deficiency anemia, unspecified; I10 Essential (primary) hypertension; E78.00 Pure hypercholesterolemia, unspecified; N20.0 Calculus of kidney; N28.1 Cyst of kidney, acquired; Z79.1 Long term (current) use of non-steroidal anti-inflammatories (NSAID); Z79.899 Other long term (current) drug therapy; Z98.890 Other specified postprocedural states
CPT/HCPCS: 43239; 88305; J2704

== ENCOUNTER 2025-08-19 10:27 | Outpatient (REF) | payer MEDICARE, SELFPAY ==
[2025-08-19 13:55] LABS: Thyroid Stimulating Hormone 2.25 uIU/mL (0.32-4.0)
== END 2025-08-19 10:28 | disposition home or self-care (01) ==
LOC: HO.LAB 10:27
PROVIDERS: PCP Internal Medicine; Visit Provider Internal Medicine
DX: I10 Essential (primary) hypertension (principal); E78.2 Mixed hyperlipidemia; D50.8 Other iron deficiency anemias; R63.4 Abnormal weight loss
CPT/HCPCS: 36415; 84443